=== PATIENT | male | born 1950 | race Caucasian/White ===

== ENCOUNTER 2022-03-07 03:56 | Emergency (ER) | payer MEDICARE, OTHER, SELFPAY ==
[2022-03-07] VITALS (10 sets, daily range): BP systolic 119–205; BP diastolic 77–131; PULSE 75–92; RESP 15–25; TEMP 36.4; O2SAT 94–96
--- NOTE | ~2022-03-07 | XR_ITS ---
EXAMINATION: XR chest 2V DATE: 03/07/2022 04:58 INDICATION: Shortness of breath TECHNIQUE: PA and lateral views of the chest are obtained. COMPARISON: 10/23/2015 FINDINGS: The lungs are hyperinflated but free of acute opacities. There is no pleural effusion or pn eumothorax. The cardiomediastinal silhouette is normal. There is mild thoracic spondylosis. There is mild gaseous distention of the stomach. IMPRESSION: 1. Hyperinflation without acute cardiopulmonary abnormality. Reviewed, dictated and finalized at location A.
--- NOTE | 2022-03-07 04:09 | ECG_ITS ---
Measurements Intervals [place] Rate: 90 P: 68 PA: 176 QRS: 27 QRSD: 98 T: 28 QT: 327 QTc: 401 Interpretive Statements SINUS RHYTHM NONSPECIFIC ST SEGMENT ABNORMALITY SIGNIFICANT BASELINE ARTIFACT Electronically Signed On 03-07-2022 9:03:12 CDT by Luis Eldridge M.D.
--- NOTE | 2022-03-07 04:11 | ED.SOB ---
HPI - SOB/Dyspnea General Chief Complaint: Shortness of Breath/Dyspnea Stated Complaint: SOB Time Seen by Provider: 03/07/22 03:58 Source: patient History of Present Illness HPI Narrative: Patient presents with shortness of breath. Reports that shortness of breath for the past couple days and has been associated with a cough. Ports a history of asthma is attempted albuterol with limited relief. He saw his primary care doctor yesterday and was started on a steroid taper. This morning his symptoms appear to be getting worse so he came to the ER for further evaluation. Denies any fevers, chest pain, nausea, vomiting, diarrhea, abdominal pain Related Data Home Medications Medication Instructions Recorded Confirmed B6 1.7 mg-folic 400 mcg-B12 2.4 cap PO 08/03/21 03/06/22 [id number] oral capsule Allergies Allergy/AdvReac Type Severity Reaction Status Date / Time amoxicillin Allergy Unknown Unknown Verified 03/07/22 04:12 tiotropium Allergy Unknown Unknown Verified 03/07/22 04:12 Review of Systems Review of Systems: CONSTITUTIONAL: Denies fever, chills, or sweats. EYES: Denies visual changes, redness, or discharge. ENT: Denies rhinorrhea, congestion, sore throat, or otalgia. CARDIOVASCULAR: Denies chest pain, palpitations, or edema. RESPIRATORY: Cough and shortness of breath GASTROINTESTINAL: Denies abdominal pain, nausea, vomiting, or diarrhea. GENITOURINARY: Denies dysuria or hematuria. SKIN: Denies rash or itching. MUSCULOSKELETAL: Denies back pain, joint pain, or myalgia. NEUROLOGIC: Denies headache, numbness, dizziness, or weakness. PSYCHIATRIC: Denies anxiety or depression. All systems reviewed & are unremarkable except as noted in HPI and below PMFSH Past Medical History Medical History Anxiety Essential hypertension Hypothyroidism, unspecified Mild persistent asthma Mixed hyperlipidemia Parkinsons disease Prostate cancer screening Psoriasis Vitamin B12 deficiency Family History Family History Father Family history of tuberculosis Cerebrovascular accident Sibling Asthma Social History Social History Second hand tobacco smoke exposure: No Alcohol intake: never Substance use: never Substance use type: does not use Gender identity (if verbalized by the patient): Male Exam Narrative: GENERAL: Well-appearing, well-nourished, and in no acute distress. HEAD: Normocephalic, atraumatic. EYES: PERRLA and EOMI. ENT: Nares clear, no rhinorrhea or epistaxis. Mucous membranes moist. NECK: Supple. No masses. No JVD CHEST: Expiratory wheezing HEART: Regular rate and rhythm. No murmur heard. Normal peripheral pulses. ABDOMEN: Soft, nontender, nondistended, normal active bowel sounds. EXTREMITIES: Normal range of motion. No edema. SKIN: Warm, dry, no rash. NEURO: No focal deficits. Alert and oriented x3. PSYCH: Normal mood and affect. Course Reevaluation(s) Reevaluation #1: Patient reports feeling much improved and would like to go home to continue managing his symptoms. Repeat lung exam is improved. Date: 03/07/22 Time: 05:29 Vital Signs Vital signs: Vital Signs Temperature 36.4 C 03/07/22 04:00 Pulse Rate 92 03/07/22 04:00 Respiratory Rate 25 H 03/07/22 04:00 Blood Pressure 205/131 H 03/07/22 04:00 Pulse Oximetry 96 03/07/22 04:00 Temperature 36.4 C 03/07/22 04:00 Pulse Rate 89 03/07/22 05:45 Respiratory Rate 20 03/07/22 05:45 Blood Pressure 119/77 03/07/22 05:45 Pulse Oximetry 95 03/07/22 05:45 MDM - SOB/Dyspnea MDM Narrative Medical decision making narrative: H&P as above, vs with hypertension, pt looks clinically well, exam mild wheezing in all lung higgins, labs with leukocytosis likely related to him resuming his prednisone, img without acute process, additional l
[2022-03-07] MEDS: methylPREDNISolone SOD SUCC 125 MG VIAL IV PUSH (04:19)
--- NOTE | 2022-03-07 04:24 | PC.NURSE ---
When pt was originally put on room air in the ED his O2 saturation was in the mid 90's. While talking to the pt his O2 would decrease and he would become uncomfortable and anxious. Pt placed on 4L nasal cannula and saturating 96% at this time.
[2022-03-07 04:25] LABS: Basophils Absolute Auto 0.1 K/mm3 (0.0-0.1); Basophils Percent Auto 0.2 % (0.2-1.2); Hematocrit 50.9 % (42.0-52.0); Hemoglobin 16.3 g/dL (14.0-18.0); Immature Granulocyte Absolute 0.17 K/mm3 (0.00-0.031); Immature Granulocyte Percent A 0.8 % (0-0.5); Lymphocytes Absolute Auto 0.95 K/mm3 (0.9-3.2); Lymphocytes Percent Auto 4.3 % (18.3-44.2); Mean Corpuscular Hemoglobin 31.5 pg (26-34); Mean Corpuscular Volume 98.5 fl (80-100); Mean Platelet Volume 10.6 fl (7.4-10.4); Monocytes Absolute Auto 1.3 K/mm3 (0.1-0.6); Monocytes Percent Auto 5.6 % (2.6-8.5); Neutrophils Absolute Auto 19.7 K/mm3 (1.3-6.7); Neutrophils Percent Auto 89.1 % (45.5-73.1); Platelet Count Result 276 k/mm3 (150-375); Red Blood Count 5.17 M/mm3 (4.6-6.20); Red Cell Distribution Width 13.4 % (11.5-14.5); White Blood Count 22.2 K/mm3 (4.5-10.0)
[2022-03-07] MEDS: ALBUTEROL SULFATE NEB 2.5 MG/0.5 ML INH 5 MG INHALATION ×2 (04:31→05:15)
[2022-03-07 04:43] LABS: Ovalocytes 1+ (NORMAL); Platelet Estimate Adequate (Adequate); Poikilocytosis 1+ (NORMAL); Tear Drop Cells 1+ (NORMAL)
[2022-03-07 04:53] LABS: HCO3 ABG 23.2 mEq/l (22.0-26.0); PCO2 ABG 46.2 mmHg (35.0-45.0); pH ABG 7.319 (7.350-7.450)
[2022-03-07 04:54] LABS: Base Excess ABG -3.2 mEq/l (+/-2.0); Oxygen Saturation ABG 97.3 % (95.0-100.0); Total Hemoglobin 16.4 g/dL (12.0-18.0)
[2022-03-07 04:55] LABS: Alveolar/Arterial O2 Gradient 99.1 mmHg; Fractional Inspired Oxygen 36 %; Oxygen Content ABG 22.4 %vol (16.0-22.0); Oxyhemoglobin 96.8 % THb (90.0-100.0); PO2 FiO2 Ratio Arterial Blood 2.89 %; Site Drawn RIGHT RADIAL
[2022-03-07 04:56] LABS: Device NASAL CANNULA; Modified Allen's Test Pass
[2022-03-07 05:24] LABS: Alanine Aminotransferase 14 U/L (4-50); Albumin Level 4.7 g/dL (3.5-5.1); Alkaline Phosphatase 108 U/L (38-126); Anion Gap 10 mmol/L (8-16); Aspartate Amino Transferase 41 U/L (17-59); Bilirubin,Total 0.8 mg/dL (0.2-1.3); Blood Urea Nitrogen 24 mg/dL (9-20); Calcium 8.7 mg/dL (8.4-10.2); Carbon Dioxide 30 mmol/L (22-30); Chloride 103 mmol/L (98-107); Estimated CRCL calculation 44 ml/min; Estimated Glomerular Filt Rate 60; Glucose 168 mg/dL (65-110); Potassium 4.2 mmol/L (3.4-5.0); Sodium 143 mmol/L (137-145)
== END 2022-03-07 05:47 | disposition home or self-care (01) ==
PROVIDERS: Emergency Provider Emergency Medicine; PCP Family Medicine
DX: R06.00 Dyspnea, unspecified (principal); I10 Essential (primary) hypertension; E03.9 Hypothyroidism, unspecified; J45.30 Mild persistent asthma, uncomplicated; G20 Parkinson's disease; E53.8 Deficiency of other specified B group vitamins; R94.31 Abnormal electrocardiogram [ECG] [EKG]
CPT/HCPCS: 36415; 36600; 71046; 80053; 82805; 85025; 93005; 94640; 96374; 99284; J2930

== ENCOUNTER 2023-01-09 08:56 | Outpatient (CLI) | payer MEDICARE, OTHER, SELFPAY ==
--- NOTE | ~2023-01-09 | XR_ITS ---
EXAMINATION: XR barium swallow modified DATE: 01/09/2023 09:47 INDICATION: Dysphagia. Unspecified foreign body in other parts of respiratory tract. TECHNIQUE: The patient was given barium-containing material of multiple consistencies to swallow by aiden salazar speech pathologist while I performed fluoroscopy. Fluoroscopy exposure time was 1.3 minutes. The n umber of fluoroscopy images saved to the PACS was 1. Dose-area product was 0.902 Gy-cm^2. FINDINGS: There is reduced laryngeal elevation and reduced tongue base retraction. There is laryngeal penetrati on with uncontrolled thick liquids via straw. IMPRESSION: 1. Laryngeal penetration. 2. Please refer to the speech therapy report for recommendations. Reviewed, dictated and finalized at location A. ITURE SPRAYER
--- NOTE | 2023-01-09 12:33 | REHSTMBS ---
Assessment and note entered by Bettina Ramos PUBLICATIONS DESIGNER Modified Barium Swallow Evaluation Feeding Type Recommended Oral Food Consistency Regular, Level 7 Liquid Consistency Mildly Thick (2) Treatment Recommendations Effortful Swallow,Laryngeal Elevation Exerc, Dominic Maneuver,Supraglottic Swallow,Tongue Base Exercise ST Clinical Summary MODIFIED BARIUM SWALLOW STUDY This patient was seen for a Modified Barium Swallow study at the request of his physician. Patient reports a history of Parkinson's disease that has contributed to extra movements of the hands and arms. He reports a history of drooling but stated he has only had difficulty swallowing bread three times in the past five years. He denied difficulty swallowing solid foods. Today the patient was presented with thin liquid contrast medium, pudding mixed with semi-solid contrast medium, and cracker and fruit pieces coated with the semi-solid mixture. He exhibited quick swallows with no evidence of penetration or aspiration until inconsistent penetration was noted per cup and straw. He did not cough on this material but was noted to cough on thin liquids after swallowing plain water per cup at the completion of the evaluation. Results suggest the patient may have a Regular Diet although he may benefit from having food presented softer and cut up. Also he may benefit from thickener to achieve a Mildly Thick Liquid consistency. Since patient reports he uses a straw at all times and this is the means by which penetration was noted, he most likely would benefit best from use of thickener. Expecting head flexion to assist with avoiding penetration is unlikely secondary to patient's physical limitations. Results were explained to patient however this therapist is unsure if patient understood the recommendations. Patient would benefit from direct Speech Therapy for instruction of safe swallowing techniques and guidelines and to instruct the patient in use of swallowing strengthening exercises. Please order outpatient Speech Therapy and fax to outpatient
== END 2023-01-09 08:57 | disposition home or self-care (01) ==
PROVIDERS: PCP Family Medicine; Visit Provider Internal Medicine Critical Care Medicine
DX: T17.800A Unspecified foreign body in other parts of respiratory tract causing asphyxiation, initial encounter (principal)
CPT/HCPCS: 92611

== ENCOUNTER 2023-01-11 07:36 | Outpatient (CLI) | payer MEDICARE, OTHER, SELFPAY ==
--- NOTE | 2023-01-11 13:19 | WPDPFTINT ---
PFT Procedure Performed PFT Procedure Performed Spirometry with Pre/Post Bronchodilator Plethysmography (Lung Vol) Flow Vol Loop PFT Interpretation This is a pulmonary function test with pre and post-bronchodilator spirometry and plethysmography. The test was performed and results interpreted in accordance with the 2019 and 2005 ATS/ERS Task Force guidelines respectively using the Global Lung Function Initiative-2012 reference equations. Patient demonstrated good effort and cooperation. Reproducibility criteria were met. The quality of the pre bronchodilator spirometry maneuver was Grade A and post bronchodilator spirometry maneuver was Grade A. Of note the patient was then able to perform the DLCO maneuver. Patient had Parkinson's disease and had difficulty with mouth PCO. Findings: Spirometry: There is decreased maximal expiratory airflow at all lung volumes with concave expiratory flow tracing. The contour the inspiratory flow tracing is normal. The pre bronchodilator FVC is 2.63 L, 62% predicted. The pre bronchodilator FEV1 is 1.06 L, 33% predicted. The pre bronchodilator FEV1: FVC ratio is 40%. The post bronchodilator FVC is 3.06 L, representing a 16% increase. The post bronchodilator FEV1 is 1.38 L, representing a 30% increase. The post bronchodilator FEV1: FVC ratio is 45%. Plethysmography: The total lung capacity is 6.49 L, 92% predicted. The functional residual capacity is 4.67 L, 125% predicted. The residual volume is 3.48 L, 141% predicted. Impression: There is a very severe obstructive abnormality with significant improvement after inhaling a single dose of albuterol. The increase in residual volume is consistent with air trapping from an obstructive abnormality. There are no prior studies for comparison
== END 2023-01-11 07:37 | disposition home or self-care (01) ==
LOC: ANHPFT 07:37
PROVIDERS: PCP Family Medicine; Visit Provider Internal Medicine Critical Care Medicine
DX: J45.30 Mild persistent asthma, uncomplicated (principal); R94.2 Abnormal results of pulmonary function studies
CPT/HCPCS: 94060; 94726

== ENCOUNTER 2023-01-22 13:10 | Outpatient (RCR) | payer MEDICARE, OTHER, SELFPAY ==
--- NOTE | 2023-01-22 16:57 | STOPEVAL1 ---
Assessment and note entered by STORMY Cummins Evaluation Information Assessment Status Evaluation Reported Pain Level Pain Score 0: Self Report Assessment ST Clinical Summary BEDSIDE SWALLOW EVALUATION This patient was seen for a Bedside Swallow Evaluation following a Modified Barium Swallow study on 01/09/23. He reports he has had swallowing issues for thirty-five years. He states that he occasionally had difficulty with prime rib falling into this throat before he wants it to. He states now he has to spend about an hour to an hour and a half consuming his meals He states that now bread causes trouble but has learned to take smaller bites. Patient stated that he is cautious with pea soup with meat because he cannot see the meat in it and was not prepared. Patient reports he has issues with breathing since he was young and currently is on a nebulizer, Advair, and Albuterol. Patient stated that Dr. Ayala told him that he was leaving too much Advair on his tongue after spraying but then he was told to brush his tongue and he noticed that he had gagged on the toothbrush but he is able to avoid that now. Patient goes out to eat 1-2 times a day and the employees cut up his food fine for him. He then stated that he avoids eating and drinking both foods and liquids at the same time but when asked about consuming mixed consistencies such as chicken noodle soup (solid noodles and meat with thin broth) or cereal in milk, he denied any difficulty. Patient was not presented with food or drink today as he already had a Modified Barium Swallow study; results were reviewed along with both normal and abnormal swallowing. He was then instructed in the use of swallowing strengthening exercises to improve the strength and safety of the swallows, including laryngeal elevation, laryngeal adduction, and base of tongue retraction exercises. He completed each exercise 5-10 times today, along with hard, effortful swallows preparing patient to complete independently at home daily. Patient voiced and demonstrated good understanding of home exercise program. Results indicate
== END 2023-01-29 11:07 | disposition home or self-care (01) ==
LOC: ANHST 13:10
PROVIDERS: PCP Family Medicine; Visit Provider Internal Medicine Critical Care Medicine
DX: T17.800D Unspecified foreign body in other parts of respiratory tract causing asphyxiation, subsequent encounter (principal)
CPT/HCPCS: 92610

== ENCOUNTER 2023-08-06 09:45 | Outpatient (CLI) | payer MEDICARE, OTHER, SELFPAY ==
--- NOTE | ~2023-08-06 | NM_ITS ---
EXAMINATION: NM bone scan whole body DATE: 08/06/2023 15:53 INDICATION: Prostate cancer. TECHNIQUE: 24 mCi Tc-99m HDP was administered intravenously. Delayed whole-body scintigrams were obt ained. COMPARISON: Chest 2 views 03/07/2022, CT abdomen and pelvis 02/20/2013 FINDINGS: There is disc-centered increased activity in the lumbar spine, correlating with degenerativ e disc disease by CT. There is increased activity at the acromioclavicular joints and sternoclavicula r joints, likely osteoarthritis. IMPRESSION: 1. No evidence of metastatic disease. Reviewed, dictated and finalized at location A.
== END 2023-08-06 09:46 | disposition home or self-care (01) ==
PROVIDERS: PCP Family Medicine; Visit Provider Nurse Practitioner Adult Health
DX: C61 Malignant neoplasm of prostate (principal)
CPT/HCPCS: 78306; A9503

== ENCOUNTER 2023-08-20 06:57 | Outpatient (CLI) | payer MEDICARE, OTHER, SELFPAY ==
--- NOTE | ~2023-08-20 | CT_ITS ---
EXAMINATION: CT abdomen pelvis w con DATE: 08/20/2023 07:36 INDICATION: Prostate cancer TECHNIQUE: Computed tomography (CT) of the abdomen and pelvis was performed with 100 cc Omnipaque 350 intravenous contrast. The dose-length product was 201.19 mGy-cm. Automated exposure control and iter ative reconstruction technique were employed. COMPARISON: CT dated 02/20/2013. FINDINGS: Lung bases are unremarkable. Heart size normal. No significant pleural or pericardial effus ion. There are moderately distended gas-filled small bowel and large bowel loops with air-fluid level s. No definitive transition site. Findings compatible with ileus. No free air identified. There are s mall low-density lesions in the liver, too small to characterize, most likely benign. The spleen, valdez creas, adrenal glands are unremarkable. There are nonobstructing bilateral renal stones. There are bi lateral renal cysts. Gallbladder is present. There is atherosclerosis of the aorta without aneurysm. Mildly prominent prostate gland. Bladder is decompressed. No lymphadenopathy. Moderate-severe lumbar spondylosis. No evidence for sclerotic metastases. IMPRESSION: 1. Nonobstructing bilateral nephrolithiasis. 2: Moderate gas-filled distended small bowel and colon, most likely ileus. Reviewed, dictated and finalized at location B.
[2023-08-20 07:32] LABS: Estimated Glomerular Filt Rate > 60
== END 2023-08-20 06:58 | disposition home or self-care (01) ==
PROVIDERS: PCP Family Medicine; Visit Provider Nurse Practitioner Adult Health
DX: C61 Malignant neoplasm of prostate (principal); N20.0 Calculus of kidney
CPT/HCPCS: 74177; Q9967

== ENCOUNTER 2024-04-01 20:46 | Emergency (ER) | payer MEDICARE, OTHER, SELFPAY ==
[2024-04-01] VITALS (7 sets, daily range): BP systolic 119–175; BP diastolic 60–99; PULSE 77–124; RESP 17–25; TEMP 36.6; O2SAT 87–98
--- NOTE | ~2024-04-01 | XR_ITS ---
EXAMINATION: XR chest 1V portable Exam Date/Time: 04/01/2024 21:42 CDT HISTORY: dyspnea Comparison: 03/07/2022. RESULT: Lines, tubes, and devices: None. Lungs and pleura: Senescent/emphysematous change, otherwise clear. Cardiomediastinal silhouette: Stable. Other: No acute osseous or upper abdominal finding. IMPRESSION: No acute cardiopulmonary process. Reviewed, dictated and finalized at location K.
--- NOTE | 2024-04-01 21:02 | ECG_ITS ---
SEE SCANNED COPY FOR CONFIRMED REPORT MTDD
[2024-04-01] MEDS: dexAMETHasone SOD PHOS INJ 10 MG/ML 1 ML VIAL IV PUSH (21:13)
[2024-04-01] MEDS: SODIUM CHLORIDE 0.9% IV 2,000 ML 999 ML IV CONT (21:13)
[2024-04-01] MEDS: MAGNESIUM SULF 2 GM/WATER 50ML 2 GM/50 ML BAG IVPB (21:33)
[2024-04-01 21:38] LABS: Alveolar/Arterial O2 Gradient 22.6 mmHg; Base Excess ABG 1.9 mEq/l (+/-2.0); Fractional Inspired Oxygen 44 %; HCO3 ABG 27.5 mEq/l (22.0-26.0); Oxygen Content ABG 21.4 %vol (16.0-22.0); Oxygen Saturation ABG 99.5 % (95.0-100.0); Oxyhemoglobin 98.5 % THb (90.0-100.0); PCO2 ABG 46.6 mmHg (35.0-45.0); PO2 FiO2 Ratio Arterial Blood 5.41 %; Total Hemoglobin 15.1 g/dL (12.0-18.0); pH ABG 7.389 (7.350-7.450)
[2024-04-01 21:42] LABS: Device NASAL CANNULA; Modified Allen's Test Pass; Site Drawn LEFT RADIAL
[2024-04-01 21:43] LABS: Basophils Absolute Auto 0.1 K/mm3 (0.0-0.1); Basophils Percent Auto 0.5 % (0.2-1.2); Eosinophils Percent Auto 0.2 % (0-4.4); Hematocrit 52.4 % (42.0-52.0); Hemoglobin 16.3 g/dL (14.0-18.0); Immature Granulocyte Absolute 0.06 K/mm3 (0.00-0.031); Immature Granulocyte Percent A 0.4 % (0-0.5); Lymphocytes Absolute Auto 1.85 K/mm3 (0.9-3.2); Lymphocytes Percent Auto 12.4 % (18.3-44.2); Mean Corpuscular HGB Conc 31.1 g/dl (32-36); Mean Corpuscular Hemoglobin 30.5 pg (26-34); Mean Corpuscular Volume 97.9 fl (80-100); Mean Platelet Volume 11.1 fl (7.4-10.4); Monocytes Absolute Auto 1.7 K/mm3 (0.1-0.6); Monocytes Percent Auto 11.4 % (2.6-8.5); Neutrophils Absolute Auto 11.2 K/mm3 (1.3-6.7); Neutrophils Percent Auto 75.1 % (45.5-73.1); Platelet Count Result 296 k/mm3 (150-375); Red Blood Count 5.35 M/mm3 (4.6-6.20); Red Cell Distribution Width 13.8 % (11.5-14.5); White Blood Count 14.9 K/mm3 (4.5-10.0)
[2024-04-01] MEDS: ALBUTEROL SULFATE NEB 2.5 MG/3 ML INH 10 MG INHALATION (21:44)
[2024-04-01 21:53] LABS: Lactic Acid Reflex 1.7 mmol/L (0.7-2.0)
[2024-04-01 21:54] LABS: Alanine Aminotransferase 38 U/L (6-50); Alkaline Phosphatase 99 U/L (38-126); Anion Gap 10 mmol/L (4-12); Aspartate Amino Transferase 32 U/L (17-59); Bilirubin,Total 1.1 mg/dL (0.2-1.3); Blood Urea Nitrogen 23 mg/dL (9-20); Carbon Dioxide 32 mmol/L (22-30); Chloride 103 mmol/L (98-107); Estimated CRCL calculation 43 ml/min; Estimated Glomerular Filt Rate 60; Glucose 130 mg/dL (65-110); Potassium 4.4 mmol/L (3.4-5.0); Sodium 145 mmol/L (137-145)
[2024-04-01 21:57] LABS: Partial Thromboplastin Time 24.9 Seconds (22.3-36.8); Prothrombin Time 13.5 Seconds (11.1-14.7)
[2024-04-01 22:05] LABS: NT Pro B Type Natriuretic Pept 140 pg/mL (19.9-100); Troponin I < 0.012 ng/mL (0.000-0.034)
[2024-04-01 22:22] LABS: Influenza A QL RT-PCR Negative (Negative); Influenza B QL RT-PCR Negative (Negative); RSV RNA, RT-PCR Negative (Negative); SARS-CoV-2 RNA PCR Negative (Negative)
[2024-04-01] MEDS: LORazepam INJ (*CRX) 2 MG/ML VIAL 0.5 MG IV PUSH (23:13)
--- NOTE | 2024-04-01 23:33 | ED.GENADULT ---
HPI - General Adult General Chief complaint: Upper Respiratory Infection Stated complaint: asthma attack Time Seen by Provider: 04/01/24 21:00 History of Present Illness HPI narrative: This is a 73-year-old male with history of asthma, Parkinson's and anxiety presenting for difficulty breathing. Feels like his asthma has been worse throughout the day today. He has taken a course of prednisone and uses inhalers without any relief. Patient denies fevers chills productive cough chest pain. Patient has significant anxiety. Related Data Allergies Allergy/AdvReac Type Severity Reaction Status Date / Time Iodinated Contrast Media Allergy Mild Hives Verified 12/25/23 13:40 amoxicillin Allergy Unknown Unknown Verified 12/25/23 13:40 tiotropium Allergy Unknown Unknown Verified 12/25/23 13:40 PMF Past Medical History Medical History Anxiety Essential hypertension Hypothyroidism, unspecified Mild persistent asthma Mixed hyperlipidemia Parkinson's disease with dyskinesia Parkinsons disease Psoriasis Vitamin B12 deficiency Surgical History Surgical History H/O hand surgery Hx of hernia repair Family History Family History Father Family history of tuberculosis Cerebrovascular accident Sibling Asthma Social History Social History Smoking status: Never smoker Second hand tobacco smoke exposure: Yes Alcohol intake: never Substance use: never Substance use type: does not use Lack of Transportation: No Lack of Food: Never True Current Housing: I Have Housing Concerned About Future Housing: No Difficulty Paying Gas/Electric Bills: No Difficulty Paying for Meds: No Currently Unemployed: No Education: Master's Degree or Higher Living arrangements: with family Occupation/Education: retired Gender identity (if verbalized by the patient): Male Sexual Orientation (if Verbalized by the Patient): Straight or Heterosexual Spiritual care concerns: No Agree to blood products: Yes Exam Narrative: APPEARANCE: patient has bilateral hand tremors. patient is very anxious Head: atraumatic. EYES: EOMI, NOSE: Atraumatic NECK: Trachea midline RESPIRATORY: tachypneic, hypoxic on room air, wheezing all higgins CARDIOVASCULAR: tachycardic, no peripheral edema ABDOMINAL: Non-distended soft nontender MUSCULOSKELETAl: No obvious deformities NEURO: Alert. resting tremor SKIN:: Warm, dry. Normal color PSYCHIATRIC: anxious Course Vital Signs Vital signs: Vital Signs Temperature 97.9 F 04/01/24 21:03 Pulse Rate 124 H 04/01/24 21:03 Respiratory Rate 25 H 04/01/24 21:03 Blood Pressure 163/99 H 04/01/24 21:03 Pulse Oximetry 87 L 04/01/24 21:03 Oxygen Delivery Room Air 04/01/24 21:03 Temperature 97.9 F 04/01/24 21:03 Pulse Rate 87 04/02/24 00:20 Respiratory Rate 20 04/02/24 00:20 Blood Pressure 141/91 H 04/02/24 00:20 Pulse Oximetry 94 04/02/24 00:20 Oxygen Delivery BiPAP 04/01/24 23:45 Oxygen Flow Rate 6 04/01/24 21:06 Medical Decision Making MDM Narrative Medical decision making narrative: -Course:73-year-old male presenting with shortness of breath. he was initially put on BiPAP and given hour long breathing treatment. However despite his respiratory status improving he was still very anxious. He was given 0.5 mg Ativan with complete normalization of his vital signs. On re-evaluation patient is resting comfortably. He was taken off of BiPAP and is breathing normally on room air. He was able to ambulatory pulse ox and never dropped 93%. I recommended admission for asthma exacerbation and the patient has declined. He is ready to go home. Patient will be discharged with return return precautions. -DDX includes but is n
[2024-04-02 00:20] VITALS: BP 141/91; PULSE 87; RESP 20; O2SAT 94
[2024-04-02 01:03] LABS: Troponin I 0.027 ng/mL (0.000-0.034)
[2024-04-02 02:12] VITALS: BP 159/82; PULSE 86; RESP 20; O2SAT 97
== END 2024-04-02 02:14 | disposition home or self-care (01) ==
PROVIDERS: Emergency Provider Emergency Medicine; PCP Family Medicine
DX: J45.30 Mild persistent asthma, uncomplicated (principal); F41.9 Anxiety disorder, unspecified; Z20.822 Contact with and (suspected) exposure to COVID-19; G20.B1 Parkinson's disease with dyskinesia, without mention of fluctuations; I10 Essential (primary) hypertension; E03.9 Hypothyroidism, unspecified; E78.2 Mixed hyperlipidemia; E53.8 Deficiency of other specified B group vitamins; L40.9 Psoriasis, unspecified
CPT/HCPCS: 36415; 36600; 71045; 80053; 82805; 83605; 83880; 84484; 85025; 85610; 85730; 87040; 87637; 93005; 94002; 94640; 96365; 96375; 99284; J1100; J2060; J3475; J7030

== ENCOUNTER 2024-04-27 08:42 | Emergency (ER) | payer MEDICARE, OTHER, SELFPAY ==
--- NOTE | ~2024-04-27 | CT_ITS ---
EXAMINATION: CT soft tissue neck wo con DATE: 04/27/2024 09:48 INDICATION: Left-sided neck mass TECHNIQUE: Computed tomography (CT) of the neck was performed with 75 mL Omnipaque-350 intravenous co ntrast. The dose-length product was 258.91 mGy-cm. Automated exposure control and iterative reconstru ction technique were employed. COMPARISON: None FINDINGS: Lung apices are unremarkable. Intracranial structures are grossly unremarkable. No airway c ompromise. Mucosal and parapharyngeal spaces are symmetric. Thyroid gland is grossly unremarkable. Study limited due to lack of contrast. There is an enlarged lymph node measuring 12 mm short axis, le alyssa 2, superficial to the sternocleidomastoid muscle which corresponds to the area of palpable concer n. There were small mucous retention cysts of the maxillary and ethmoid sinuses. No subglottic airway na rrowing. There is atherosclerosis of the right carotid bifurcation. Moderate cervical spondylosis. IMPRESSION: 1. Left cervical lymphadenopathy measuring 12 mm short axis, corresponding to the area of palpable co ncern. Consider further evaluation with contrast-enhanced CT neck for further assessment. Reviewed, dictated and finalized at location B. IMPRESSION: 1. Left cervical lymphadenopathy measuring 12 mm short axis, corresponding to t he area of palpable concern. Consider further evaluation with contrast-enhanced CT neck for further assessment.
[2024-04-27 08:48] VITALS: BP 142/81; PULSE 72; RESP 17; TEMP 37.2; O2SAT 100
[2024-04-27 09:44] LABS: Basophils Absolute Auto 0.1 K/mm3 (0.0-0.1); Basophils Percent Auto 0.8 % (0.2-1.2); Eosinophils Absolute Auto 0.3 K/mm3 (0-0.3); Eosinophils Percent Auto 2.8 % (0-4.4); Hematocrit 46.6 % (42.0-52.0); Immature Granulocyte Absolute 0.03 K/mm3 (0.00-0.031); Immature Granulocyte Percent A 0.3 % (0-0.5); Lymphocytes Absolute Auto 1.29 K/mm3 (0.9-3.2); Lymphocytes Percent Auto 12.2 % (18.3-44.2); Mean Corpuscular HGB Conc 32.2 g/dl (32-36); Mean Corpuscular Hemoglobin 31.1 pg (26-34); Mean Corpuscular Volume 96.7 fl (80-100); Mean Platelet Volume 10.5 fl (7.4-10.4); Monocytes Absolute Auto 0.9 K/mm3 (0.1-0.6); Monocytes Percent Auto 8.1 % (2.6-8.5); Neutrophils Percent Auto 75.8 % (45.5-73.1); Platelet Count Result 223 k/mm3 (150-375); Red Blood Count 4.82 M/mm3 (4.6-6.20); White Blood Count 10.6 K/mm3 (4.5-10.0)
[2024-04-27 09:53] LABS: Anion Gap 2 mmol/L (4-12); Blood Urea Nitrogen 22 mg/dL (9-20); Calcium 9.5 mg/dL (8.4-10.2); Carbon Dioxide 34 mmol/L (22-30); Chloride 108 mmol/L (98-107); Estimated CRCL calculation 51 ml/min; Estimated Glomerular Filt Rate > 60; Glucose 81 mg/dL (65-110); Potassium 4.3 mmol/L (3.4-5.0); Sodium 144 mmol/L (137-145)
--- NOTE | 2024-04-27 12:27 | ED.GENADULT ---
HPI - General Adult General Chief complaint: Unspecified Stated complaint: GROWTH ON THE NECK Time Seen by Provider: 04/27/24 08:55 Source: patient Mode of arrival: ambulatory Limitations: no limitations History of Present Illness HPI narrative: 73-year-old with a history of Parkinson's here with a complaint of swelling on his left side of his neck. Patient states that he had noticed test today. He denies any fever or chills. Onset (ago): day(s) (1) Location: neck Pain Consistency: constant Relieving factors: none Exacerbating factors: none Associated symptoms: denies other symptoms Related Data Allergies Allergy/AdvReac Type Severity Reaction Status Date / Time Iodinated Contrast Media Allergy Mild Hives Verified 04/27/24 08:51 amoxicillin Allergy Unknown Unknown Verified 04/27/24 08:51 tiotropium Allergy Unknown Unknown Verified 04/27/24 08:51 Review of Systems Review of Systems: All systems reviewed & are unremarkable except as noted in HPI and below Constitutional: Constitutional: Reports no additional constitutional complaints Eyes: Eyes: Reports no additional eye complaints ENT: Reports system reviewed and no additional complaints, except as documented Cardiovascular: Cardiovascular: Reports no additional cardiovascular complaints Respiratory: Respiratory: Reports no additional respiratory complaints Gastrointestinal: Gastrointestinal: Reports no additional gastrointestinal complaints Musculoskeletal: Musculoskeletal: Reports no additional musculoskeletal complaints Neurologic: Reports system reviewed and no additional complaints, except as documented Psychiatric: Psychiatric: Reports no additional psychiatric complaints [facility] Past Medical History Medical History (Updated 04/27/24 @ 12:34 by Connor Field MD) Anxiety Essential hypertension Hypothyroidism, unspecified Mild persistent asthma Mixed hyperlipidemia Parkinson's disease with dyskinesia Parkinsons disease Prostate cancer Psoriasis Vitamin B12 deficiency Surgical History Surgical History H/O hand surgery Hx of hernia repair Family History Family History Father Family history of tuberculosis Cerebrovascular accident Sibling Asthma Social History Social History Smoking status: Never smoker Second hand tobacco smoke exposure: Yes Alcohol intake: never Substance use: never Substance use type: does not use Lack of Transportation: No Lack of Food: Never True Current Housing: I Have Housing Concerned About Future Housing: No Difficulty Paying Gas/Electric Bills: No Difficulty Paying for Meds: No Currently Unemployed: No Education: Master's Degree or Higher Living arrangements: with family Occupation/Education: retired Gender identity (if verbalized by the patient): Male Sexual Orientation (if Verbalized by the Patient): Straight or Heterosexual Spiritual care concerns: No Agree to blood products: Yes Exam Narrative: GENERAL: Well-appearing, well-nourished, and in no acute distress. HEAD: Normocephalic, atraumatic. EYES: PERRLA and EOMI. ENT: Nares clear, no rhinorrhea or epistaxis. Mucous membranes moist. NECK: Supple. There is about 3 cm soft mobile mass on the left side of the neck along the sternocleidomastoid area close to the parotid. Nontender no erythema CHEST: Clear to auscultation. No respiratory distress. HEART: Regular rate and rhythm. No murmur heard. Normal peripheral pulses. ABDOMEN: Soft, nontender, nondistended, normal active bowel sounds. EXTREMITIES: Normal range of motion. No edema. SKIN: Warm, dry, no rash. NEURO: No focal deficits. Alert and oriented x3. PSYCH: Normal mood and affect. Course Course Emergency Course: Notified patient about the lab work, CT findings recommended him to follow up
[2024-04-27 12:48] VITALS: BP 135/72; PULSE 76; RESP 18; TEMP 36.8; O2SAT 100
== END 2024-04-27 12:50 | disposition home or self-care (01) ==
PROVIDERS: Emergency Provider Family Medicine; PCP Family Medicine
DX: R59.0 Localized enlarged lymph nodes (principal); F41.9 Anxiety disorder, unspecified; I10 Essential (primary) hypertension; E03.9 Hypothyroidism, unspecified; J45.909 Unspecified asthma, uncomplicated; E78.5 Hyperlipidemia, unspecified; G20.B1 Parkinson's disease with dyskinesia, without mention of fluctuations; Z85.46 Personal history of malignant neoplasm of prostate
CPT/HCPCS: 36415; 70490; 80048; 85025; 99284

== ENCOUNTER 2024-05-27 08:46 | Outpatient (CLI) | payer MEDICARE, OTHER, SELFPAY ==
--- NOTE | ~2024-05-27 | US_ITS ---
EXAMINATION: US FNA w image guidance DATE: 05/27/2024 10:58 INDICATION: Generalized enlarged lymph nodes. TECHNIQUE: The procedure and its benefits and risks were discussed with the patient. Risks specifically discusse d included bleeding. The patient verbalized understanding of the risks and agreed to proceed. The nec k was prepped and draped in the usual sterile manner. 1% lidocaine was used for local anesthesia. 6 passes were made with a 25G needle into the lesion under ultrasound guidance. There were no immedia te complications. FINDINGS: Grayscale ultrasound images demonstrate needles advanced into a 1.3 x 0.8 cm left parotid mass for bi opsy. IMPRESSION: 1. Ultrasound-guided fine needle aspiration of a left parotid mass. Reviewed, dictated and finalized at location A.
== END 2024-05-27 08:47 | disposition home or self-care (01) ==
LOC: ANHIMG 08:47
PROVIDERS: PCP Family Medicine; Visit Provider Surgery
DX: R59.1 Generalized enlarged lymph nodes (principal)
CPT/HCPCS: 10005; 88108; 88305

== ENCOUNTER 2024-12-18 00:54 | Day surgery (SDC) | payer MEDICARE, OTHER, SELFPAY ==
--- NOTE | 2024-12-05 12:14 | PC.NURSE ---
Report to the Outpatient Waiting Room, entrance under the green pavilion located off [facility], at time _6 AM on date . Planned Procedure Time: 7:30 AM .? Time changes happen often and if your time is changed the preop area will call you the afternoon before. - You and your visitor will be asked to self-screen and do not enter if you have any COVID symptoms. Please call surgeon if you need to reschedule. - A mask is optional within the hospital at this time. Patients may have clear liquids (water, carbonated beverages, clear teas, apple juice) until 3 hours prior to surgery( 4:30AM) with a maximum of 20 ounces. - No food from midnight until time of surgery and no smoking. This includes no chewing gum, candy or mints. - Infants may have breast milk until 4 hours before surgery, infant formula 6 hours prior to surgery. - Children will be allowed to drink immediately following surgery.? If applicable, please bring a bottle or sippy cup to assist with drinking. Juice, water, soda, and popsicles are readily available.? For infants on formula, please bring formula the day of surgery.? Pacifiers are allowed. Take only the following medications with a SIP of water on the morning of surgery: ___BREZTRI INHALER,BUSPIRONE_,LEVOTHYROXINE DO NOT STOP ANY OF YOUR OTHER PRESCRIPTION MEDICATIONS PRIOR TO SURGERY EXCEPT THE FOLLOWING Medications to discontinue per physician NONE Please no make-up, nail djiboutian, hairspray, perfume, deodorant, or body powder the day of surgery.? No jewelry (including any body piercings) or valuables the day of surgery, leave them at home.? Please take a shower or bath the night before, or the morning of, surgery with an antibacterial soap.? Wear comfortable, loose fitting clothing.? Children are encouraged to wear pajamas. - Jewelry must be removed prior to entering the operating room.? Rings and piercings that are not removed may be cut off. - The hospital will not accept responsibility for valuables.? - Please leave all valuables, including medications, at home the day of surgery. If you are going home after surgery, a licensed local delivery driver must drive you home.? - NO public transportation without another adult if you receive anesthesia. - We recommend that an adult stay with you for 24 hours following discharge. - We also recommend that you do not drive, make important decision, drink alcoholic beverages, or take any drugs that were not prescribed by your health care provider for at least 24 hours after your discharge time. For Pediatric surgeries, we recommend two adults accompany the child home. Follow any additional instructions given to you from your surgeon. Telephone instructions given to __PATIENT and asked if any additional questions and then verbalized understanding. Patient advised to call surgeon office or pre surgery nurse liaison [phone] if any additional questions.
[2024-12-05 12:47] VITALS: BMI 20.5
--- NOTE | 2024-12-10 17:01 | P.HP_ITS ---
History of Present Illness History of Present Illness Consent: Risks, benefits, and alternatives have been discussed and questions answered. Patient agrees to proceed with procedure. Chief complaint: Prostate Ca Narrative: Prem Small is a 74 year old male With known unfavorable intermediate risk prostate cancer diagnosed just over a year ago. He has opted for surveillance protocol. He is now due for a confirmatory biopsy. Because of his severe tremor from Parkinson's disease we have opted to do this under sedation. He is aware of the risks including, but not limited to, adverse cardiopulmonary events, hematuria, urinary tract infection with possible sepsis. Review of Systems Review of Systems: All systems reviewed & are unremarkable except as noted in HPI and below PMFSH Past Medical History Medical History History of kidney stones Prostate cancer Parkinson's disease with dyskinesia Mild persistent asthma Anxiety Essential hypertension Mixed hyperlipidemia Hypothyroidism, unspecified Parkinsons disease Psoriasis Vitamin B12 deficiency Surgical History Surgical History History of removal of cyst History of kidney surgery Hx of hernia repair H/O hand surgery Family History Family History Father Family history of tuberculosis Cerebrovascular accident Sibling Asthma Social History Social History Smoking status: Never smoker Second hand tobacco smoke exposure: Yes Alcohol intake: never Substance use: never Substance use type: does not use Lack of Transportation: No Lack of Food: Never True Current Housing: I Have Housing Concerned About Future Housing: No Difficulty Paying Gas/Electric Bills: No Difficulty Paying for Meds: No Currently Unemployed: No Education: Master's Degree or Higher Living arrangements: alone Occupation/Education: retired Gender identity (if verbalized by the patient): Male Sexual Orientation (if Verbalized by the Patient): Straight or Heterosexual Spiritual care concerns: No Agree to blood products: Yes Meds Home Medications and Allergies Home Medications ?Medication ?Instructions ?Recorded ?Confirmed ?Type albuterol sulfate 90 mcg/actuation 1 puff inhalation Q4H PRN 12/19/22 12/05/24 Rx aerosol inhaler (ProAir HFA) bronchospasm #8.5 grams albuterol sulfate 2.5 mg/3 mL 2.5 mg (3 mL) inhalation Q4-6H PRN 08/09/23 12/05/24 Rx (0.083 %) solution for nebulization bronchospasm #1,080 mL albuterol sulfate 90 mcg/actuation 2 inh inhalation Q4-6H PRN 02/18/24 12/05/24 Rx aerosol inhaler (Ventolin HFA) shortness of breath 90 days #8.5 grams inhalational spacing device #1 ea 02/18/24 11/10/24 Rx (Aerochamber MV spacer) inhalational spacing device #1 ea 02/18/24 11/10/24 Rx (Aerochamber MV spacer) prednisone 10 mg tablet 10 mg PO DIRECTED #30 tabs 02/18/24 12/05/24 Rx fluticasone propionate 50 1 spray intranasal DAILY 05/06/24 12/05/24 History mcg/actuation nasal spray,suspension (Flonase Allergy Relief) budesonide 160 mcg-glycopyr 9 2 inh inhalation QAM AND QPM #3 07/16/24 12/05/24 Rx mcg-formot 4.8 mcg/actuation HFA device inhaler (Breztri Aerosphere) inhalational spacing device #3 ea 07/16/24 11/10/24 Rx (Compact Space Chamber) carbidopa 25 mg-levodopa 100 mg 2 tablet PO QID #240 tabs 09/17/24 12/05/24 Rx tablet (Sinemet) nortriptyline 10 mg capsule 10 mg PO QHS #90 caps 09/17/24 12/05/24 Rx buspirone 10 mg tablet 10 mg PO BID PRN stress #180 tabs 11/10/24 12/05/24 Rx levothyroxine 50 mcg tablet 50 mcg PO DAILY #90 tabs 11/10/24 12/05/24 Rx lisinopril 2.5 mg tablet 2.5 mg PO DAILY #90 tabs 11/10/24 12/05/24 Rx tamsulosin 0.4 mg capsule (Flomax) 0.4 mg PO DAILY #90 caps 11/10/24 12/05/24 Rx thiamine HCl (vitamin B1) 100 mg 100 mg PO DAILY #90 tabs 11/10/24 12/05/24 Rx tablet Allergies Allergy/AdvReac Type Severity Reaction Status Date / Time Iodinated Contrast Media Allergy Mild Hives Verified 12/08/24 14:01 amoxicillin Allergy Unknown Unknown Verified 12/08/24 14:01 tiotropium Allergy Unknown Unknown Verified 12/08/24 14:01 levoloxcin Allergy Unknown Swelling Uncoded 12/05/24 12:17 Assessment and Plan Assessment and plan (1) Prostate cancer: Code(s): C61 - Malignant neoplasm of prostate Status: Acute Assessment and Plan: * Transrectal ultrasound and ultrasound-guided biopsy of the prostate
--- NOTE | 2024-12-17 15:53 | P.PNAN_ITS ---
Anes - Initial Pre Proc Eval Procedure: Operation Date: 12/18/24 07:30 Proposed Procedures p Prostate Ultrasound with Biopsy - Mati Richardson MD Date/Time: 12/17/24 15:53 Surgeon: Mati Richardson MD Pre Op Diagnosis: Prostate Ca Patient Data Age: 74 Gender: M Height: 1.78 m Weight: 64.9 kg Allergies Allergy/AdvReac Type Severity Reaction Status Date / Time Iodinated Contrast Media Allergy Mild Hives Verified 12/18/24 06:34 amoxicillin Allergy Unknown Unknown Verified 12/18/24 06:34 tiotropium Allergy Unknown Unknown Verified 12/18/24 06:34 levoloxcin Allergy Unknown Swelling Uncoded 12/18/24 06:34 Home Medications ?Medication ?Instructions ?Recorded ?Confirmed ?Type albuterol sulfate 90 mcg/actuation 1 puff inhalation Q4H PRN 12/19/22 12/05/24 Rx aerosol inhaler (ProAir HFA) bronchospasm #8.5 grams albuterol sulfate 2.5 mg/3 mL 2.5 mg (3 mL) inhalation Q4-6H PRN 08/09/23 12/05/24 Rx (0.083 %) solution for nebulization bronchospasm #1,080 mL albuterol sulfate 90 mcg/actuation 2 inh inhalation Q4-6H PRN 02/18/24 12/05/24 Rx aerosol inhaler (Ventolin HFA) shortness of breath 90 days #8.5 grams inhalational spacing device #1 ea 02/18/24 11/10/24 Rx (Aerochamber MV spacer) inhalational spacing device #1 ea 02/18/24 11/10/24 Rx (Aerochamber MV spacer) prednisone 10 mg tablet 10 mg PO DIRECTED #30 tabs 02/18/24 12/05/24 Rx fluticasone propionate 50 1 spray intranasal DAILY 05/06/24 12/05/24 History mcg/actuation nasal spray,suspension (Flonase Allergy Relief) budesonide 160 mcg-glycopyr 9 2 inh inhalation QAM AND QPM #3 07/16/24 12/18/24 Rx mcg-formot 4.8 mcg/actuation HFA device inhaler (Breztri Aerosphere) inhalational spacing device #3 ea 07/16/24 11/10/24 Rx (Compact Space Chamber) carbidopa 25 mg-levodopa 100 mg 2 tablet PO QID #240 tabs 09/17/24 12/05/24 Rx tablet (Sinemet) nortriptyline 10 mg capsule 10 mg PO QHS #90 caps 09/17/24 12/05/24 Rx buspirone 10 mg tablet 10 mg PO BID PRN stress #180 tabs 11/10/24 12/05/24 Rx levothyroxine 50 mcg tablet 50 mcg PO DAILY #90 tabs 11/10/24 12/05/24 Rx lisinopril 2.5 mg tablet 2.5 mg PO DAILY #90 tabs 11/10/24 12/05/24 Rx tamsulosin 0.4 mg capsule (Flomax) 0.4 mg PO DAILY #90 caps 11/10/24 12/05/24 Rx thiamine HCl (vitamin B1) 100 mg 100 mg PO DAILY #90 tabs 11/10/24 12/18/24 Rx tablet Patient hx anesthesia problems: none Family hx anesthesia problems: none Results Review: All pre-operative results and documents have been reviewed as part of the pre- operative evaluation. [facility] Past Medical History Medical History History of kidney stones Prostate cancer Parkinson's disease with dyskinesia Mild persistent asthma Anxiety Essential hypertension Mixed hyperlipidemia Hypothyroidism, unspecified Parkinsons disease Psoriasis Vitamin B12 deficiency Surgical History Surgical History History of removal of cyst History of kidney surgery Hx of hernia repair H/O hand surgery Family History Family History Father Family history of tuberculosis Cerebrovascular accident Sibling Asthma Social History Social History Smoking status: Never smoker Second hand tobacco smoke exposure: Yes Alcohol intake: never Substance use: never Substance use type: does not use Lack of Transportation: No Lack of Food: Never True Current Housing: I Have Housing Concerned About Future Housing: No Difficulty Paying Gas/Electric Bills: No Difficulty Paying for Meds: No Currently Unemployed: No Education: Master's Degree or Higher Living arrangements: with family Occupation/Education: retired Gender identity (if verbalized by the patient): Male Sexual Orientation (if Verbalized by the Patient): Straight or Heterosexual Spiritual care concerns: No Agree to blood products: Yes Anes - Eval Final PreProcedure Day of Procedure 12/17/24 15:53 Patient weight: normal Heart: regular rate and rhythm Lungs: clear to auscultation and normal air movement Airway: Mallampati scale class II Neurological: alert and oriented Last oral intake: >/= 8 hours ASA classification: III Emergent: no Anesthetic plan: proceed Anesthesia type and monitoring: general GIVS and standard monitoring Results Review: All pre-operative results and documents have been reviewed as part of the pre- operative evaluation. Informed Consent: The patient's anesthetic plan and its attendant risks and benefits were discussed with the patient/family/POA. Questions were solicited and answers provided to the satisfaction of the patient/family/POA.
[2024-12-18 06:05] VITALS: BP 148/80; PULSE 60; RESP 18; TEMP 36.8; O2SAT 100
--- NOTE | 2024-12-18 06:22 | WPDHPUPDATE1 ---
History and Physical Update Update Date/Time: 12/18/24 06:22 History and Physical has been reviewed, including an updated exam of the patient. There are NO changes in the patient's condition. Risks, benefits, and alternatives have been discussed and questions answered. Patient agrees to proceed with procedure.
[2024-12-18] MEDS: LACTATED RINGERS 1,000 ML 30 ML IV CONT (06:30)
[2024-12-18] MEDS: ceFAZolin 2 GM/D5W 50 ML 2 GM/50 ML BAG IVPB (07:26)
[2024-12-18 07:51] VITALS: BP 127/95; PULSE 83; RESP 16; O2SAT 97
--- NOTE | 2024-12-18 07:53 | W.PM.PROC2 ---
Procedure Note - Detailed Date of Procedure 12/18/24 Pre-op Diagnosis Prostate Ca Post-op Diagnosis Same Procedure Performed Transrectal ultrasound prostate, transrectal guided biopsy prostate Surgeon Mati Richardson MD Anesthesia MAC Description of Procedure The patient was place in a left lateral position after administration of systemic sedation by the anesthesia department. Transrectal ultrasound of the prostate is undertaken at 6.0Hz. The prostate capsule is intact and the tissue has a normal echo texture. There is a small median lobe and minimal PVR in the bladder. The seminal vesicles have a normal appearance ultrasonically. The prostate measured 27.7gm in size. Using ultrasound guidance a total of 12 biopsy cores are obtained. The ultrasound probe was removed and the patient was taken to the recovery room in good condition. Pathology Yes Complications No immediate complications Condition Stable Disposition PACU
[2024-12-18 08:20] VITALS: BP 134/86; PULSE 56; RESP 16; O2SAT 97
[2024-12-18 08:50] VITALS: BP 130/82; PULSE 64; RESP 18
[2024-12-18 09:20] VITALS: BP 120/64; PULSE 70; RESP 18
--- OUTSIDE RECORDS SUMMARY | 2024-12-19 03:44 | XMS_ITS ---
Author Organization [facility] Address [address] [place] [address] Care Team Providers Care Cosmetology Instructor Name Role Phone Ana Arora Primary Care Provider UnavailEugenia Laughlin Unavailable [phone] Bettina Ayala Unavailable Unavailable Allergies Allergen (clinical drug ingredient) Drug/Non Drug Allergy documented on EMR Reaction Allergy Type Onset Date Status amoxicillin Amoxicillin (uncoded) Unknown Allergy Active Iodinated contrast media (substance) Iodinated Contrast Media (uncoded) Hives Allergy Active Sulfameth/Trimethop rim (uncoded) Swollen gland in neck Allergy Active tiotropium Tiotropium (uncoded) Unknown Allergy Active amoxicillin Amoxicillin unknown reaction Drug Allergy Active Iodinated contrast media (substance) Iodinated Contrast Media unknown reaction Drug Allergy Active tiotropium Tiotropium unknown reaction Drug Allergy Active REASON FOR VISIT Asthma - previously not on controller inhaler with JOSE and albuterol nebulizer use multiple times per day. Breztri started after initial visit with overall improvement. Reports JOSE use 1-2 times inpast month with no interval steroids. Tezspire initiated 08/21/24 with no interval JOSE use. ACT 25. Medications Medication SIG (Take, Route, Frequency, Duration) Notes Start Date End Date Status Advair HFA 115-21 MCG/ACT 2 puffs Inhalation Twice a day Not-Taking Trihexyphenidyl HCl 2 MG 1 tablet Orally Twice a day Not-Taking predniSONE 10 MG 1 tablet Orally Once a day used rarely Not-Taking Lisinopril 2.5 MG 1 tablet Orally Once a day Active Levothyroxine Sodium 50 MCG 1 tablet in the morning on an empty stomach Orally Once a day Active Tamsulosin HCl 0.4 MG 1 capsule Orally Once a day Not-Taking Multivitamin - 1 tablet Orally Once a day Active Prevagen 10 MG as directed Orally Active busPIRone HCl 10 MG 1 tablet Orally Twice a day Not-Taking Nortriptyline HCl 10 MG 1 capsule Orally at bedtime Not-Taking Flonase Allergy Relief 50 MCG/ACT 1 spray in each nostril Nasally Once a day Not-Taking AeroChamber MV - as directed for 30 days Any adult spacer 10/16/2024 Active Carbidopa-Levodopa 25-250 MG 1 tablet Orally four times a day Active Albuterol Sulfate (2.5 MG/3ML) 0.083% 3 mL as needed Inhalation every 6 hrs Active Tezspire 210 MG/1.91ML as directed Subcutaneous Active Breztri Aerosphere 160-9-4.8 MCG/ACT 2 puffs Inhalation Twice a day for 90 days Active predniSONE 20 MG 2 tablet Orally Once a day for 5 days Active Social History Tobacco Use: Social History Observation Description Date Details (start date - stop date) Never Smoker NA - NA Tobacco Control (Standard) Question Answer Notes Tobacco use: Nonsmoker Vital Signs Blood pressure systolic 140 mm Hg 10/16/20 24 Blood pressure diastolic 68 mm Hg 024 Oximetry 98 % 10/16/2024 Height 70 in 10/16/2024 Weight 147.8 lbs 10/16/2024 BMI 21.2 kg/m2 10/16/2024 Encounters Encounter Location Date Provider Diagnosis [facility] [address] [facility] [address] [place] [id number] 10/16/2024 Eugenia Barragan Severe persistent asthma, uncomplicated J45.50 ; Wheezing R06.2 ; Hypertrophy of nasal turbinates J34.3 ; Chronic rhinitis J31.0 ; Parkinsonism, unspecified G20.C and Essential (primary) hypertension I10 Assessments Encounter Date Diagnosis (ICD Code) Assessment Notes Treatment Notes Treatment Clinical Notes Section Notes 10/16/2024 Severe persistent asthma, uncomplicated (ICD-10 - J45.50) Prem displayed audible inspiratory and expiratory wheezing at initial visit. Of note, wheezing seemed to decrease when he was calmer at end of visit. Patient demonstrated a poor understanding of disease process as he reported no immediate relief from Advair, so did not use. Also was only using albuterol nebulizer for 1-2 minutes at a time multiple times throughout the day. Last visit, reported overall improvement since adhering to Breztri BID with JOSE use 1- 2 times, still using nebulizer only for 1-2 minutes. Tezspire initiated in 08/21/24. Today, reports he is feeling well with no interval JOSE use. ACT 25 today. - Records show PFTs from 12/2022, confirming asthma diagnosis with a positive bronchodilator response. Pre-BD FEV1 1.06L and post-BD FEV1 1.38L, a 320cc increase, representing a 30% increase. - Last spirometry showed reduced FVC, FEV1, FEV% suggesting severe obstruction. FVC increased by 670cc and FEV1 increased by 400cc compared to 05/2024 spirometry. FVL shows scalloping and reduced flow rates throughout exhalation. Advanced lung age. Will plan fore repeat spirometry when on Tezspire for 3-6 months. - Will continue Breztri 2 inhalations BID. Instructed to brush teeth after inhalation. Continue JOSE PRN. Refills sent for Breztri and spacer. - PFTs from 12/2022: decreased maximal expiratory airflow at all lung volumes with concave expiratory flow tracing. Total Lung capacity is 6.49L. Impression: Very severe obstructive abnormality with significant improvement after inhaling a single dose of albuterol. The increase in residual volume is consistent with air trapping from an obstructive abnormality. - Normal Alpha-1 swab from 12/2022; MM=normal phenotype. Obtained due to hyperinflation on chest Xray in 02/2022. Consider High-resolution chest CT. - Biologic workup ordered - Total IgE 216 and Abs eosinophil count 200. Abs neutrophil count 8.3 with normal WBC count. Consider repeat per PCP. Results forwarded to Dr. Arora. - Discussed potential need for biologic therapy given severe obstruction on spirometry and persistent symptoms despite Breztri, daily JOSE use and ongoing prednisone use. Discussed with Dr. Paredes, Dr. Ayala and Prem and in agreement to start Tezspire. We decided to initiate treatment on 08/21/24 with TEZSPIRE and continued today. Risk, benefits and alternatives of care were discussed. - Prem received Tezspire dosing today without issue. He is to return in one month for his next dose. - AAP reviewed at length. - Consider LTRA, will hold off at this time given history of anxiety - Received annual influenza and Covid-19 vaccines. Plans to receive RSV vaccine in the interim. - Follow-up in 1 month for E&M, Tezspire, repeat spirometry 10/16/2024 Wheezing (ICD-10 - R06.2) Lungs clear on exam today. 10/16/2024 Hypertrophy of nasal turbinates (ICD-10 - J34.3) Concern for allergies flaring asthma. He has never undergone skin testing. Of note, patient denies upper airway symptoms. - ImmunoCaps ordered showing undetectable to all aeroallergens. Total IgE 216. 10/16/2024 Chronic rhinitis (ICD-10 - J31.0) As stated above 10/16/2024 Parkinsonism, unspecified (ICD-10 - G20.C) Given diagnosis of neurodegenerative disease, concerning that this may be playing a role is his severe lower airway obstruction. 10/16/2024 Essential (primary) hypertension (ICD-10 - I10) BP WNL today. Continue serial checks and follow-up with PCP 10/16/2024 Other Plan Of Treatment Medication Medication Name Sig Start Date Stop Date Notes AeroChamber MV - as directed for 30 days 10/16/2024 Albuterol Sulfate (2.5 MG/3ML) 0.083% 3 mL as needed Inhalation every 6 hrs Tezspire 210 MG/1.91ML as directed Subcutaneous Breztri Aerosphere 160-9-4.8 MCG/ACT 2 puffs Inhalation Twice a day for 90 days predniSONE 20 MG 2 tablet Orally Once a day for 5 days Treatment Notes Assessment Notes Severe persistent asthma, uncomplicated Prem displayed audible inspiratory and expiratory wheezing at initial visit. Of note, wheezing seemed to decrease when he was calmer at end of visit. Patient demonstrated a poor understanding of disease process as he reported no immediate relief from Advair, so did not use. Also was only using albuterol nebulizer for 1-2 minutes at a time multiple times throughout the day. Last visit, reported overall improvement since adhering to Breztri BID with JOSE use 1- 2 times, still using nebulizer only for 1-2 minutes. Tezspire initiated in 08/21/24. Today, reports he is feeling well with no interval JOSE use. ACT 25 today. - Records show PFTs from 12/2022, confirming asthma diagnosis with a positive bronchodilator response. Pre-BD FEV1 1.06L and post-BD FEV1 1.38L, a 320cc increase, representing a 30% increase. - Last spirometry showed reduced FVC, FEV1, FEV% suggesting severe obstruction. FVC increased by 670cc and FEV1 increased by 400cc compared to 05/2024 spirometry. FVL shows scalloping and reduced flow rates throughout exhalation. Advanced lung age. Will plan fore repeat spirometry when on Tezspire for 3-6 months. - Will continue Breztri 2 inhalations BID. Instructed to brush teeth after inhalation. Continue JOSE PRN. Refills sent for Breztri and spacer. - PFTs from 12/2022: decreased maximal expiratory airflow at all lung volumes with concave expiratory flow tracing. Total Lung capacity is 6.49L. Impression: Very severe obstructive abnormality with significant improvement after inhaling a single dose of albuterol. The increase in residual volume is consistent with air trapping from an obstructive abnormality. - Normal Alpha-1 swab from 12/2022; MM=normal phenotype. Obtained due to hyperinflation on chest Xray in 02/2022. Consider High-resolution chest CT. - Biologic workup ordered - Total IgE 216 and Abs eosinophil count 200. Abs neutrophil count 8.3 with normal WBC count. Consider repeat per PCP. Results forwarded to Dr. Arora. - Discussed potential need for biologic therapy given severe obstruction on spirometry and persistent symptoms despite Breztri, daily JOSE use and ongoing prednisone use. Discussed with Dr. Paredes, Dr. Ayala and Prem and in agreement to start Tezspire. We decided to initiate treatment on 08/21/24 with TEZSPIRE and continued today. Risk, benefits and alternatives of care were discussed. - Prem received Tezspire dosing today without issue. He is to return in one month for his next dose. - AAP reviewed at length. - Consider LTRA, will hold off at this time given history of anxiety - Received annual influenza and Covid-19 vaccines. Plans to receive RSV vaccine in the interim. - Follow-up in 1 month for E&M, Tezspire, repeat spirometry Wheezing Lungs clear on exam today. Hypertrophy of nasal turbinates Concern for allergies flaring asthma. He has never undergone skin testing. Of note, patient denies upper airway symptoms. - ImmunoCaps ordered showing undetectable to all aeroallergens. Total IgE 216. Chronic rhinitis As stated above Parkinsonism, unspecified Given diagnosi s of neurodegenerative disease, concerning that this may be playing a role is his severe lower airway obstruction. Essential (primary) hypertension BP WNL today. Continue serial checks and follow-up with PCP Next Appt Details Follow Up: 4 Weeks, Reason: Evaluation and Management,TEZSPIRE Administration Provider Name:Eugenia sanz, 01/08/2025 01:30:00 PM, [facility], [address], [place], [address], Procedure Notes * Category Sub-Category Detail Notes TEZSPIRE (tezepelumab-ekko) Administration Dosing Time / Vitals Hoda Laguna 10/16/2024 02:03:45 PM COMMISSIONER OF CONCILIATION >, See initial vitals Dose Concentration/Dosing : 210 mg (110 mg/mL) / 1.91 mL subcutaneous injection Location [facility] Reaction None Frequency Interval:: Monthly Lot Number / Expiration Lot Number: [id number] , Expiration: 01/23/2026 Post-procedural check-out: Vital signs t aken 30 minutes after dosin/60 96% 82P Medication Source TEZSPIRE Source: Buy and Bill Progress Notes * Sunita COREAShDOB:[birth year] (74 yo M)Acc No.[id number]:10/16/2024 TEZSPIRE Adiministration Vis it Patient:?Prem COREAS Provider:?OBIE López :1950???Age:74 Y???Sex:Male Juan e:10/16/2024 Address:[address] [place], [place] [id number] Pcp:Ana Arora Subjective: * Chief Complaints: * ???Asthma - previously not o n controller inhaler with JOSE and albuterol nebulizer use multiple times per day. Breztri started after initial visit with overall improvement. Reports JOSE use 1-2 times in past month with no interval steroids. Tezspire initiated 08/21/24 with no interval JOSE use. ACT 25. * HPI: ???*Introduction:?I had the pleasure of seeing?Prem Coreas, a 74 year-old male with ahistory of Parkinson's disease and severe-persistent asthma here today in referral from Dr.Barbara Ayala for interval evaluation and management and to continue treatment with Tezspire. He is alone fortoday's visit. At initial visit, Prem was actively wheezing on inhalation and exhalation. Per sister, he was very stressed for appointment. Prem reports when he is anxious, his wheezing is exacerbated. His previous treatment for asthma consisted of Advair HFA and JOSE PRN per record review from Dr. Ayala's office. Records reviewed confirm bronchdilator reversibility on PFTs. At initial visit, Prem was not using Advair, only using his JOSE or albuterol nebulizer multiple times per day. Per sister, he used his albuterol nebulizer for 1-2 minutes multiple times throughout the day. He does not sit for a full treatment. He was prescribed Advair diskus at one time, but was unable to use appropriately due to his Parkinson's. Additionally, he reports using prednisone PRN, often daily. He was previously prescribed prednisone for 30 days in a row for stress and asthma. After initial visit, Breztri BID was initiated as well as 5 days OCS. Prem reported overall improvement in lower airways symptoms with JOSE use 1-2 times since last visit. Still with SOB with exertion and prolonged periods of talking. In effort to aid in symptom control and obstruction on spirometry, Tezspire was initated on 08/21/24. He reports no OCS use since prescribed by our office.? Today, he continues to report he has been doing great with no interval JOSE use. ACT 25.? Prem was referred dueto concerns for allergies exacerbating his lower airway symptoms. Prem does not perceive any upper airwaysymptoms at this time. ImmunoCaps obtained after last visit were undetectable. Total IgE 216. He deniesfrequent infections. He denies intubations, PNA diagnosis. His last Pneumovaxwas in 2019.He has never undergone allergy skin testing or received allergy immunotherapy.Per record review, he was previously usingAdvair HFA 115/21 1 puff BID as controller. He had 1 visit to ER in 02/2022,with Chest xray showing hyperinflation. He was on oxygen briefly at that time.He was diagnosed with Parkinson's in 2001 and has been relatively stable, though he has aspirated in the past. In 12/2022 he had abnormal modified barium swallow.Laryngeal penetration with uncontrolled thick liquids via straw. In 12/2022,alpha 1 swab done and was normal. He denies a history of physician-diagnosed allergic rhinitis, recurrent sinusitis or otitis media, recurrent pneumonia, eczema, food allergies, urticaria/angioedema, medication allergies, contact dermatitis, latex allergy, eosinophilic esophagitis or stinging insect hypersensitivity. Today, he reports no fevers, chills, night sweats or other constitutional symptoms.?The patient is here for scheduled immunotherapy with TEZSPIRE. Please see the attached specialty form regarding the specifics of the administration of this medication. As per our protocol, they must undergo a screening health questionnaire (medication changes, reaction(s) to last immunotherapy dose(s), current health status, ACT (if appropriate), self-injectable epinephrine on patient(?) and peak flow (if appropriate)). * ROS:?ALLERGY:?Positive?per the HPI and history, otherwise unremarkable.?SPECIAL SENSES:?Positve for?none.?CONSTITUTIONAL:?Positive for?none.?ENT:?Positive?per the HPI and history, otherwise unremarkable.?RESPIRATORY:?Positive?per the HPI and history, otherwise unremakable.?OPHTHALMOLOGY:?Positive for?per the HPI and history, otherwise unremarkable.?ENDOCRINOLOGY:?Positive for?none.?CARDIOLOGY:?Positive for?none.?GASTROENTEROLOGY:?Positive for?none.?UROLOGY:?Positive for?none.?DERMATOLOGY:?Positive for?per the HPI and history, otherwise unremakable.?NEUROLOGY:?Positive for?none.?HEMATOLOGY/LYMPH:?Positive for?none.?MUSCULOSKELETAL:?Positive for?none.?PSYCHOLOGY:?Positive for?none.?All other review of systems per the HPI and history, otherwise unremarkable. * Medical History:? * Surgical History:?cyst remov al 2023 * Hospitalization/Major Diagno stic Procedure:?ER visits for breathing * Family History:?Father: dece ased 62 yrs, Stroke.?Mother: 93 yrs, heart failure.?Siblings: alive, myasthenia gravis-sister.?1 sister(s) . .? * Social History:?Marital Status?What is your marital status?Alcohol Screening?Do you ever drink alcoholic beverages??No ???Smoking?Are you a :?never smoker ???Recreational drug use?Have you ever used recreational drugs??No ???Details on consumption of certain products?Do you regularly consume products with aspartame; Equal or NutraSweet??No ?Do you regularly consume products with artificial coloring??Yes ?Have you ever noticed worsening of your rash with these food items??No ???Are any of the following personal care products containing fragrance, dye or preservatives used regularly?Shampoo:?Yes ?Conditioner:?No ?Soap:?Yes ?Laundry Detergent:?Yes ?Fabric Softener:?No ?Deodorant:?Yes ?Perfume, cologne, after shave:?No ?Air freshners or other scented products:?No ?Hair coloring dyes or rinses:?No ?Other:?No ???Occupation?Are you currenly employed??No ?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,shipyard ?Have you had any job with high exposure to fumes, chemicals, dust or other noxious substances??Yes ?Are you currently a student??No ???Environmental History?Living environment:?alone ?Age of home:?28 ?How long have you lived there??5 years or more ?How many people live in the home??1 ???Home description?Basement:?No ?Smokers in the home??No ?Smokers outside the home??No ?Air Conditioning??Yes ?Central Air??Yes ?Forced air heating??Yes ?Gas or electric??electric ?Fireplace??No ?Wood burning stove??No ?Do you vacuum the home??No ?Air purification systems??No ?Pillow and mattress dust-proof encasings??No ?Do you use a humidifier??No ?Do you own any pets??No ?Fabric softeners used??No ?Plants in the home??No ?Is there carpeting in your bedroom??Yes ?Age of carpet??27 ?Do you have [id number] carpeting??Yes ?What is the age of your carpeting??27 ?What is the age of your mattress (years)??14 ?What material(s) are used to manufacture your bedding and pillow??natural fiber (e.g. cotton) ?What material are your bedding items made of??synthetic ?Do you sleep with quilts or blankets or a duvet??Yes ?What material??synthetic ???Tobacco Control (Standard)?Tobacco use:?Nonsmoker * Medications:?TakingBreztri A erosphere 160-9-4.8 MCG/ACT Aerosol 2 puffs Inhalation Twice a day Tezspire 210 MG/1.91ML Solution Prefilled Syringe as directed Subcutaneous Carbidopa-Levodopa 25-250 MG Tablet 1 tablet Orally four times a day Prevagen 10 MG Capsule as directed Orally Multivitamin - Tablet 1 tablet Orally Once a day Levothyroxine Sodium 50 MCG Tablet 1 tablet in the morning on an empty stomach Orally Once a day Lisinopril 2.5 MG Tablet 1 tablet Orally Once a day Taking Breztri Aerosphere 160-9-4.8 MCG/ACT Aerosol 2 puffs Inhalation Twice a day Taking Tezspire 210 MG/1.91ML Solution Prefilled Syringe as directed Subcutaneous Taking Carbidopa-Levodopa 25-250 MG Tablet 1 tablet Orally four times a day Taking Prevagen 10 MG Capsule as directed Orally Taking Multivitamin - Tablet 1 tablet Orally Once a day Taking Levothyroxine Sodium 50 MCG Tablet 1 tablet in the morning on an empty stomach Orally Once a day Taking Lisinopril 2.5 MG Tablet 1 tablet Orally Once a day Not-Taking/PRNpredniSONE 20 MG Tablet 2 tablet Orally Once a day Albuterol Sulfate (2.5 MG/3ML) 0.083% Nebulization Solution 3 mL as needed Inhalation every 6 hrs Flonase Allergy Relief 50 MCG/ACT Suspension 1 spray in each nostril Nasally Once a day Tamsulosin HCl 0.4 MG Capsule 1 capsule Orally Once a day Nortriptyline HCl 10 MG Capsule 1 capsule Orally at bedtime busPIRone HCl 10 MG Tablet 1 tablet Orally Twice a day Trihexyphenidyl HCl 2 MG Tablet 1 tablet Orally Twice a day Advair HFA 115-21 MCG/ACT Aerosol 2 puffs Inhalation Twice a day predniSONE 10 MG Tablet 1 tablet Orally Once a day , Notes to Pharmacist: used rarelyMedication List reviewed and reconciled with the patientNot-Taking/PRN predniSONE 20 MG Tablet 2 tablet Orally Once a day Not-Taking/PRN Albuterol Sulfate (2.5 MG/3ML) 0.083% Nebulization Solution 3 mL as needed Inhalation every 6 hrs Not-Taking/PRN Flonase Allergy Relief 50 MCG/ACT Suspension 1 spray in each nostril Nasally Once a day Not-Taking/PRN Tamsulosin HCl 0.4 MG Capsule 1 capsule Orally Once a day Not-Taking/PRN Nortriptyline HCl 10 MG Capsule 1 capsule Orally at bedtime Not-Taking/PRN busPIRone HCl 10 MG Tablet 1 tablet Orally Twice a day Not-Taking/PRN Trihexyphenidyl HCl 2 MG Tablet 1 tablet Orally Twice a day Not-Taking/PRN Advair HFA 115-21 MCG/ACT Aerosol 2 puffs Inhalation Twice a day Not-Taking/PRN predniSONE 10 MG Tablet 1 tablet Orally Once a day , Notes to Pharmacist: used rarelyMedication List reviewed and reconciled with the patient * Allergies:?Iodinated Contras t Media: HivesAmoxicillinTiotropiumSulfameth/Trimethoprim: Swollen gland in neckIodinated Contrast Media: unknown reactionAmoxicillin: unknown reactionTiotropium: unknown reactionno[Allergies Verified] Objective: * Vitals:?BP:140/68mm Hg, HR:8 4/min, Pulse Oximetry:98%, ACT:25, Ht: 70 in, Wt: 147.8 lbs, BMI:21.2Index. * Examination: ???General examination: ?General appearance:?pleasant, well-developed, well-nourished.?HEENT:?pupils equal, round, and reactive to light and accommodation, conjunctiva are injected bilaterally, TMs without evidence of acute infection, wax in ear canals, turbinates 2+ swollen and pale inferiorly bilaterally, no polyps noted,, no tongue swelling, and uvula is midline.?Oral cavity:?normal, no lesions.?Breasts :?not performed.?Heart:?RRR, S1-S2, no murmurs, no rubs, no gallops.?Lungs:?clear to auscultation in all lung higgins, no wheezes, no crackles, no rhonchi.?Neurologic exam:?unremarkable.?Skin:?normal, no rash, dermatographism, urticaria, angioedema.?Peripheral pulses:?normal (2+) bilaterally.?Back:?normal.?Extremities:?normal ROM, no clubbing, no cyanosis, no edema.?Genitalia:?not performed.? Assessment: * Assessment: 1.?Severe persistent asthma, uncomplicated - J45.50 (Primary)???2.?Wheezing - R06.2???3.?Hypertrophy of nasal turbinates - J34.3???4.?Chronic rhinitis - J31.0???5.?Parkinsonism, unspecified - G20.C???6.?Essential (primary) hypertension - I10??? Plan: * Treatment: 2.?Wheezing? Hold predniSONE Tablet, 20 MG, 2 tablet, Orally, Once a day, 5 days, 10 Tablet, Refills 0.?? Notes: Lungs clear on exam today. ?? 3.?Hypertrophy of nasal turb inates? Notes: Concern for allergies flaring asthma. He hasnever undergone skin testing. Of note,patient denies upper airway symptoms. -ImmunoCaps ordered showing undetectable to all aeroallergens. Total IgE 216.?? 4.?Chronic rhinitis? Notes: As stated above?? 5.?Parkinsonism, unspecified ? Notes: Given diagnosis of neurodegenerative disease, concerning that this may be playing a role is his severe lower airway obstruction. ?? 6.?Essential (primary) hyper tension? Notes: BP WNL today. Continue serial checks and follow-up with PCP?? * Procedures:?TEZSPIRE (tezepelumab-ekko) Administration:?Dosing Time / Vitals?Hoda Laguna 10/16/2024 02:03:45 PM COMMISSIONER OF CONCILIATION >, See initial vitals.?Dose ?Concentration/Dosing?210 mg (110 mg/mL) / 1.91 mL subcutaneous injection ?Location?[facility].?Reaction?None.?Frequency ?Interval:?Monthly ?Lot Number / Expiration?Lot Number: [id number] , Expiration: 01/23/2026.?Post-procedural check-out:?Vital signs taken 30 minutes after dosin/60 96% 82P.?Medication Source ?TEZSPIRE Source?Buy and Bill? * Procedure Codes:?33768 PT-FO CUSED HLTH RISK [id number] DOC MEDS VERIFIED W/PT OR [id number] THER/PROPH/DIAG INJ, [id number] TEZSPIRE 210 mg - 1 unit (1 mg), Units: 210.00 , Modifiers: JZ * Preventive Medicine:? ??Counseling:?Diet?as tolerated.?Exercise?Continue activity as usual, Consider JOSE use PRN, prior to exercise as per the asthma action plan.?Medication instruction:?Watch for side effects of prescribed medications, , Use prescribed inhaler(s) with spacer. If taking a inhaled corticorsteroid rinse out mouth after use and brush teeth. Oral hygiene reviewed at length., [place] teeth or rinse out mouth after the use of oral, inhaled steroids to prevent oral thrush, Use 2 puffs of JOSE with spacer prior to exercise and environmental exposures known to cause wheezing.?Education:?GENERAL EDUCATION: Our staff spent an additional 30 minutes in direct contact with the patient educating them on their current diagnoses and proper treatment and prevention of symptoms and the proper use of medications, ASTHMA EDUCATION:, Our staff discussed pulmonary function testing and results with the patient/family, Our staff reviewed the patient's asthma action plan, Our staff trained the patient on the appropriate use of MDI/DPI/Respimat/spacer/nebulizer treatments for future use.?Patient education material?sent to portal??Yes * Follow Up:?4 Weeks (Reason: Evaluation and Management,TEZSPIRE Administration) * Billing Information: * Visit Code:? 01290 Office Visit, Est Pt., Level 4. Modifiers: 25 * Procedure Codes:? 00650 PT-FOCUSED HLTH RISK ASSMT. G8427 DOC [place]S VERIFIED W/[place]. [address] THER/PROPH/DIAG INJ, SC/IM. J2356 TEZSPIRE 210 mg - 1 unit (1 mg). Units: 210.00. Modifiers: JZ * ISSIONER OF CONCILIATION Electronically co-signed by Michael Paredes MD, FAAAAI on 11/30/2024 at 07:53 PM COMMISSIONER OF CONCILIATION Sign off status: Completed true * Provider:?OBIE López Juan e:?10/16/2024 Generated for Franciscai ng/Faireneg/eTransmitting on:?12/19/2024 03:44 AM COMMISSIONER OF CONCILIATION History and Physical Notes * HPI (History of Present Illness) Category Sub-Category Detail Notes Category Notes *Introduction I had the pleasure of seeing Prem Coreas, a 74 year-old male with a history of Parkinson's disease and severe-persistent asthma here today in referral from Dr. Bettina Ayala for interval evaluation and management and to continue treatment with Tezspire. He is alone for today's visit. At initial visit, Prem was actively wheezing on inhalation and exhalation. Per sister, he was very stressed for appointment. Prem reports when he is anxious, his wheezing is exacerbated. His previous treatment for asthma consisted of Advair HFA and JOSE PRN per record review from Dr. Ayala's office. Records reviewed confirm bronchdilator reversibility on PFTs. At initial visit, Prem was not using Advair, only using his JOSE or albuterol nebulizer multiple times per day. Per sister, he used his albuterol nebulizer for 1-2 minutes multiple times throughout the day. He does not sit for a full treatment. He was prescribed Advair diskus at one time, but was unable to use appropriately due to his Parkinson's. Additionally, he reports using prednisone PRN, often daily. He was previously prescribed prednisone for 30 days in a row for stress and asthma. After initial visit, Breztri BID was initiated as well as 5 days OCS. Prem reported overall improvement in lower airways symptoms with JOSE use 1-2 times since last visit. Still with SOB with exertion and prolonged periods of talking. In effort to aid in symptom control and obstruction on spirometry, Tezspire was initated on 08/21/24. He reports no OCS use since prescribed by our office. Today, he continues to report he has been doing great with no interval JOSE use. ACT 25. Prem was referred due to concerns for allergies exacerbating his lower airway symptoms. Prem does not perceive any upper airway symptoms at this time. ImmunoCaps obtained after last visit were undetectable. Total IgE 216. He denies frequent infections. He denies intubations, PNA diagnosis. His last Pneumovax was in 2019. He has never undergone allergy skin testing or received allergy immunotherapy. Per record review, he was previously using Advair HFA 115/21 1 puff BID as controller. He had 1 visit to ER in 02/2022, with Chest xray showing hyperinflation. He was on oxygen briefly at that time. He was diagnosed with Parkinson's in 2001 and has been relatively stable, though he has aspirated in the past. In 12/2022 he had abnormal modified barium swallow. Laryngeal penetration with uncontrolled thick liquids via straw. In 12/2022, alpha 1 swab done and was normal. He denies a history of physician-diagnosed allergic rhinitis, recurrent sinusitis or otitis media, recurrent pneumonia, eczema, food allergies, urticaria/angioedema, medication allergies, contact dermatitis, latex allergy, eosinophilic esophagitis or stinging insect hypersensitivity. Today, he reports no fevers, chills, night sweats or other constitutional symptoms The patient is here for scheduled immunotherapy with TEZSPIRE. Please see the attached specialty form regarding the specifics of the administration of this medication. As per our protocol, they must undergo a screening health questionnaire (medication changes, reaction(s) to last immunotherapy dose(s), current health status, ACT (if appropriate), self-injectable epinephrine on patient(?) and peak flow (if appropriate)). Examination Category Sub-Category Detail Notes Category Not es General examination HEENT: pupils equal , round, and reactive to light and accommodation, conjunctiva are injected bilaterally, TMs without evidence of acute infection, wax in ear canals, turbinates 2+ swollen and pale inferiorly bilaterally, no polyps noted,, no tongue swelling, and uvula is midline Heart: RRR, S1-S2, no murmu rs, no rubs, no gallops Lungs: clear to auscultatio n in all lung higgins, no wheezes, no crackles, no rhonchi Extremities: normal ROM, no clubb ing, no cyanosis, no edema General appearance: pleasant, well-devel oped, well-nourished Skin: normal, no rash, kinsey matographism, urticaria, angioedema Neurologic exam: unremarkable Oral cavity: normal, no lesions Breasts : not performed Peripheral pulses: normal (2+) bilatera lly Back: normal Genitalia: not performed
--- OUTSIDE RECORDS SUMMARY | 2024-12-19 03:44 | XMS_ITS ---
Author Organization [facility] Address [address] [place] [address] Care Team Providers Care Cement Breaker Name Role Phone Ana Arora Primary Care Provider UnavailEugenia Laughlin Unavailable [phone] Bettina Ayala Unavailable Unavailable Allergies Allergen (clinical [...] after initial visit with overall improvement. Reports no interval JOSE use in past month with no interval steroids. Tezspire initiated 08/21/24 with no interval JOSE use. ACT 25. Medications Medication SIG (Take, Route, Frequency, Duration) Notes Start Date End Date Status AeroChamber MV - as directed for 30 days Any adult spacer Active Tezspire 210 MG/1.91ML as directed Subcutaneous Active Albuterol Sulfate (2.5 MG/3ML) 0.083% 3 mL as needed Inhalation every 6 hrs Active predniSONE 20 MG 2 tablet Orally Once a day for 5 days Active Breztri Aerosphere 160-9-4.8 MCG/ACT 2 puffs Inhalation Twice a day for 90 days Active Nortriptyline HCl 10 MG 1 capsule Orally at bedtime Not-Taking busPIRone HCl 10 MG 1 tablet Orally Twice a day Active predniSONE 10 MG 1 tablet Orally Once a day used rarely Not-Taking Trihexyphenidyl HCl 2 MG 1 tablet Orally Twice a day Not-Taking Advair HFA 115-21 MCG/ACT 2 puffs Inhalation Twice a day Active Flonase Allergy Relief 50 MCG/ACT 1 spray in each nostril Nasally Once a day Active Tamsulosin HCl 0.4 MG 1 capsule Orally Once a day Active Multivitamin - 1 tablet Orally Once a day Active Levothyroxine Sodium 50 MCG 1 tablet in the morning on an empty stomach Orally Once a day Active Lisinopril 2.5 MG 1 tablet Orally Once a day Active Nortriptyline HCl 25 MG 1 capsule at bedtime Orally Once a day Active Carbidopa-Levodopa 25-250 MG 1 tablet Orally four times a day Active Prevagen 10 MG as directed Orally Not-Taking Social History Tobacco Use: Social History Observation Description Date Details (start date - stop date) Never Smoker NA - NA Tobacco Control (Standard) Question Answer Notes Tobacco use: Nonsmoker Vital Signs Blood pressure systolic 140 mm Hg 11/13/20 24 Blood pressure diastolic 80 mm Hg 024 Oximetry 98 % 11/13/2024 Height 70 in 11/13/2024 Weight 146 lbs 11/13/2024 BMI 20.95 kg/m2 11/13/2024 Encounters Encounter Location Date Provider Diagnosis [facility] [address] [facility] [address] [place] [id number] 11/13/2024 Eugenia Barragan Severe persistent asthma, uncomplicated J45.50 ; Wheezing R06.2 ; Hypertrophy of nasal turbinates J34.3 ; Chronic rhinitis J31.0 ; Parkinsonism, unspecified G20.C and Essential (primary) hypertension I10 Assessments Encounter Date Diagnosis (ICD Code) Assessment Notes Treatment Notes Treatment Clinical Notes Section Notes 11/13/2024 Severe persistent asthma, uncomplicated (ICD-10 - J45.50) [...] 1-2 minutes. Tezspire initiated in 08/21/24. Today, continues to report he is feeling well with no interval [...] 1 month for E&M, Tezspire, repeat spirometry as he will be on Tezspire for over 3 months. 11/13/2024 Wheezing (ICD-10 - R06.2) Lungs clear on exam today. 11/13/2024 Hypertrophy of nasal turbinates (ICD-10 - J34.3) Concern for allergies flaring asthma. He has never undergone skin testing. Of note, patient denies upper airway symptoms. - ImmunoCaps ordered showing undetectable to all aeroallergens. Total IgE 216. Consider recheck off steroids. 11/13/2024 Chronic rhinitis (ICD-10 - J31.0) As stated above 11/13/2024 Parkinsonism, unspecified (ICD-10 - G20.C) Given diagnosis of neurodegenerative disease, concerning that this may be playing a role is his severe lower airway obstruction. - He is slated to start thiamine therapy in 11/2024 for potential improvement in tremors and drooling. 11/13/2024 Essential (primary) hypertension (ICD-10 - I10) BP elevated today without symptoms of urgency or emergency. Continue serial checks and follow-up with PCP 11/13/2024 Other Plan Of Treatment Medication Medication Name Sig Start Date Stop Date Notes AeroChamber MV - as directed for 30 days Tezspire 210 MG/1.91ML as directed Subcutaneous Albuterol Sulfate (2.5 MG/3ML) 0.083% 3 mL as needed Inhalation every 6 hrs predniSONE 20 MG 2 tablet Orally Once a day for 5 days Breztri Aerosphere 160-9-4.8 MCG/ACT 2 puffs Inhalation Twice a day for 90 days Treatment Notes Assessment Notes Severe persistent [...] 1-2 minutes. Tezspire initiated in 08/21/24. Today, continues to report he is feeling well with no interval [...] 1 month for E&M, Tezspire, repeat spirometry as he will be on Tezspire for over 3 months. Wheezing Lungs clear on exam today. Hypertrophy of nasal turbinates Concern for allergies flaring asthma. He has never undergone skin testing. Of note, patient denies upper airway symptoms. - ImmunoCaps ordered showing undetectable to all aeroallergens. Total IgE 216. Consider recheck off steroids. Chronic rhinitis As stated above Parkinsonism, unspecified Given diagnosis of neurodegenerative disease, concerning that this may be playing a role is his severe lower airway obstruction. - He is slated to start thiamine therapy in 11/2024 for potential improvement in tremors and drooling. Essential (primary) hypertension BP elev ated today without symptoms of urgency or emergency. Continue serial checks and follow-up with PCP Next Appt Details Follow Up: 4 Weeks, Reason: Evaluation and Management,TEZSPIRE Administration Provider Name:Eugenia sanz, 01/08/2025 01:30:00 PM, [facility] [address], [place], [address], Procedure Notes * Category Sub-Category Detail Notes TEZSPIRE (tezepelumab-ekko) Administration Dosing Time / Vitals Hoda Laguna 11/13/2024 01:27:18 PM VETERINARY HOSPITAL ATTENDANT >, See initial vitals Dose Concentration/Dosing : 210 mg (110 mg/mL) / 1.91 mL subcutaneous injection Location [place], [place] Reaction None Frequency Interval:: Monthly Lot Number / Expiration Lot Number: [id number] , Expiration: 01/23/2026 Post-procedural check-out: Vital signs t aken 30 minutes after dosing: BP: 148/76, P: 98, O2: 96% Medication Source TEZSPIRE Source: Buy and Bill Medical necessity for in-off ice administration The patient or caregiver is not suitable , not competent or is physically unable to administer the TEZSPIRE product for the following reason(s):: Accordingly, the patient requires direct monitoring and administration by a healthcare professional Progress Notes * Shlomo COREASOB:[birth year] (74 yo M)Acc No.[id number]:11/13/2024 TEZSPIRE Adiministration Vis it Patient:Prem PAL Provider:?LOU LópezPDemian :1950???Age:74 Y???Sex:Male Juan e:11/13/2024 [address] [place] [id number] Pcp:nAa Arora Subjective: * Chief Complaints: * ???Asthma - previously not o n controller inhaler with JOSE and albuterol nebulizer use multiple times per day. Breztri started after initial visit with overall improvement. Reports no interval JOSE use in past month with no interval steroids. [...] reported overall improvement in lower airways symptoms with?JOSE use 1-2 times. Still with SOB with exertion and prolonged periods of talking. In effort to aid in symptom control and obstruction on spirometry, Tezspire was initated on 08/21/24. He reports no OCS use since prescribed by our office. Today, he continues to report he has been doing great with no interval JOSE use. ACT 25. He was evaluated by PCP this week, with plans to start thiamine therapy in an effort to improve Parkinson's symptoms.?? Prem was referred dueto concerns for allergies exacerbating his lower airway symptoms. Prem does not perceive any upper airwaysymptoms at this time. ImmunoCaps obtained after last visit were undetectable, though were obtanied with recent steroid use. Total IgE 216. He deniesfrequent infections. He [...] bedroom??Yes ?Age of carpet??27 ?Do you have [id number] carpeting??Yes ?What is the age of your carpeting??27 ?What is the age of your mattress (years)??14 ?What material(s) are used to manufacture your bedding and pillow??natural fiber (e.g. cotton) ?What material are your bedding items made of??synthetic ?Do you sleep with quilts or blankets or a duvet??Yes ?What material??synthetic ???Tobacco Control (Standard)?Tobacco use:?Nonsmoker * Medications:?TakingNortripty line HCl 25 MG Capsule 1 capsule at bedtime Orally Once a day Breztri Aerosphere 160-9-4.8 MCG/ACT Aerosol 2 puffs Inhalation Twice a day Albuterol Sulfate (2.5 MG/3ML) 0.083% Nebulization Solution 3 mL as needed Inhalation every 6 hrs Tezspire 210 MG/1.91ML Solution Prefilled Syringe as directed Subcutaneous Carbidopa-Levodopa 25-250 MG Tablet 1 tablet Orally four times a day Multivitamin - Tablet 1 tablet Orally Once a day Levothyroxine Sodium 50 MCG Tablet 1 tablet in the morning on an empty stomach Orally Once a day Lisinopril 2.5 MG Tablet 1 tablet Orally Once a day AeroChamber MV - Miscellaneous as directed Any adult spacerFlonase Allergy Relief 50 MCG/ACT Suspension 1 spray in each nostril Nasally Once a day Tamsulosin HCl 0.4 MG Capsule 1 capsule Orally Once a day busPIRone HCl 10 MG Tablet 1 tablet Orally Twice a day Advair HFA 115-21 MCG/ACT Aerosol 2 puffs Inhalation Twice a day Taking Nortriptyline HCl 25 MG Capsule 1 capsule at bedtime Orally Once a day Taking Breztri Aerosphere 160-9-4.8 MCG/ACT Aerosol 2 puffs Inhalation Twice a day Taking Albuterol Sulfate (2.5 MG/3ML) 0.083% Nebulization Solution 3 mL as needed Inhalation every 6 hrs Taking Tezspire 210 MG/1.91ML Solution Prefilled Syringe as directed Subcutaneous Taking Carbidopa-Levodopa 25-250 MG Tablet 1 tablet Orally four times a day Taking Multivitamin - Tablet 1 tablet Orally Once a day Taking Levothyroxine Sodium 50 MCG Tablet 1 tablet in the morning on an empty stomach Orally Once a day Taking Lisinopril 2.5 MG Tablet 1 tablet Orally Once a day Taking AeroChamber MV - Miscellaneous as directed Any adult spacerTaking Flonase Allergy Relief 50 MCG/ACT Suspension 1 spray in each nostril Nasally Once a day Taking Tamsulosin HCl 0.4 MG Capsule 1 capsule Orally Once a day Taking busPIRone HCl 10 MG Tablet 1 tablet Orally Twice a day Taking Advair HFA 115-21 MCG/ACT Aerosol 2 puffs Inhalation Twice a day Not-Taking/PRNpredniSONE 20 MG Tablet 2 tablet Orally Once a day Prevagen 10 MG Capsule as directed Orally Nortriptyline HCl 10 MG Capsule 1 capsule Orally at bedtime Trihexyphenidyl HCl 2 MG Tablet 1 tablet Orally Twice a day predniSONE 10 MG Tablet 1 tablet Orally Once a day , Notes to Pharmacist: used rarelyNot-Taking/PRN predniSONE 20 MG Tablet 2 tablet Orally Once a day Not-Taking/PRN Prevagen 10 MG Capsule as directed Orally Not-Taking/PRN Nortriptyline HCl 10 MG Capsule 1 capsule Orally at bedtime Not-Taking/PRN Trihexyphenidyl HCl 2 MG Tablet 1 tablet Orally Twice a day Not-Taking/PRN predniSONE 10 MG Tablet 1 tablet Orally Once a day , Notes to Pharmacist: used rarely * Allergies:?Iodinated Contras t Media: HivesAmoxicillinTiotropiumSulfameth/Trimethoprim: Swollen gland in neckIodinated Contrast Media: unknown reactionAmoxicillin: unknown reactionTiotropium: unknown reactionno[Allergies Verified] Objective: * Vitals:?BP:140/80mm Hg, HR:9 8/min, Pulse Oximetry:98%, ACT:25, Ht: 70 in, Wt: 146 lbs, BMI:20.95Index. * Examination: ???General examination: ?General appearance:?pleasant, well-developed, [...] undetectable to all aeroallergens. Total IgE 216. Consider recheck off steroids.?? 4.?Chronic rhinitis? Notes: As stated above?? 5.?Parkinsonism, unspecified ? Notes: Given diagnosis of neurodegenerative disease, concerning that this may be playing a role is his severe lower airway obstruction. - He is slated to start thiamine therapy in 11/2024 for potential improvement in tremors and drooling. ?? 6.?Essential (primary) hyper tension? Notes: BP elevated today without symptoms of urgency or emergency. Continue serial checks and follow-up with PCP?? * Procedures:?TEZSPIRE (tezepelumab-ekko) Administration:?Dosing Time / Vitals?Hoda Laguna 11/13/2024 01:27:18 PM [facility] ATTENDANT >, See initial vitals.?Dose ?Concentration/Dosing?210 mg (110 mg/mL) / 1.91 mL subcutaneous injection ?Location?[facility], [place].?Reaction?None.?Frequency ?Interval:?Monthly ?Lot Number / Expiration?Lot Number: [id number] , Expiration: 01/23/2026.?Post-procedural check-out:?Vital signs taken 30 minutes after dosing: BP: 148/76, P: 98, O2: 96%.?Medication Source ?TEZSPIRE Source?Buy and Bill ?Medical necessity for in-business office coordinator ?The patient or caregiver is not suitable, not competent or is physically unable to administer the TEZSPIRE product for the following reason(s):?Accordingly, the patient requires direct monitoring and administration by a healthcare professional? * Procedure Codes:?90834 PT-FO CUSED HLTH RISK [id number] DOC MEDS VERIFIED W/PT OR AE38879 THER/PROPH/DIAG INJ, SC/ELR3670 TEZSPIRE 210 mg - 1 unit (1 [...] brush teeth. Oral hygiene reviewed at length., [place] teeth or rinse out mouth after the [...] Administration) * Billing Information: * Visit Code:? 38213 Office Visit, Est Pt., Level 4. Modifiers: 25 * Procedure Codes:? 95525 PT-FOCUSED HLTH RISK ASSMT. G8427 DOC MEDS VERIFIED W/[place]. [address] THER/PROPH/DIAG INJ, SC/IM. J2356 TEZSPIRE 210 mg - 1 unit (1 mg). Units: 210.00. Modifiers: JJuanjo * [facility] ATTENDANT Electronically co-signed by Michael Paredes MD, FAAAAI on 12/01/2024 at 08:34 PM [facility] ATTENDANT Sign off status: Completed true * Provider:?OBIE López Juan e:?11/13/2024 Generated for Cristy peter/Samuel/Quinnitting on:?12/19/2024 03:43 AM [facility] ATTENDANT History and Physical Notes * HPI (History [...] lower airways symptoms with JOSE use 1-2 times. Still with SOB with exertion and prolonged periods of talking. In effort to aid in symptom control and obstruction on spirometry, Tezspire was initated on 08/21/24. He reports no OCS use since prescribed by our office. Today, he continues to report he has been doing great with no interval JOSE use. ACT 25. He was evaluated by PCP this week, with plans to start thiamine therapy in an effort to improve Parkinson's symptoms. Prem was referred due to concerns for allergies exacerbating his lower airway symptoms. Prem does not perceive any upper airway symptoms at this time. ImmunoCaps obtained after last visit were undetectable, though were obtanied with recent steroid use. Total IgE 216. He denies frequent infections. [...]
--- OUTSIDE RECORDS SUMMARY | 2024-12-19 03:44 | XMS_ITS | Encounter Summary ---
Author Organization [facility] Address 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
--- OUTSIDE RECORDS SUMMARY | 2024-12-19 03:44 | XMS_ITS | Encounter Summary ---
Author Organization [facility] Address 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
--- OUTSIDE RECORDS SUMMARY | 2024-12-19 03:44 | XMS_ITS ---
Author Organization [facility] Address [address] [place] [address] Care Team Providers Care Social Research Assistant Name Role Phone Ana Arora Primary Care Provider UnavailEugenia Laughlin Unavailable [phone] Bettina Ayala Unavailable Unavailable Allergies Allergen (clinical [...] with no interval JOSE use. ACT 25. Today, reporting URI with cough, resolved within past week. Medications Medication SIG (Take, Route, Frequency, Duration) Notes Start Date End Date Status Breztri Aerosphere 160-9-4.8 MCG/ACT 2 puffs Inhalation Twice a day for 90 days Active predniSONE 10 MG 1 tablet Orally Once a day used rarely Not-Taking Trihexyphenidyl HCl 2 MG 1 tablet Orally Twice a day Not-Taking Nortriptyline HCl 10 MG 1 capsule Orally at bedtime Not-Taking Prevagen 10 MG as directed Orally Not-Taking Flonase Allergy Relief 50 MCG/ACT 1 spray in each nostril Nasally Once a day Active Carbidopa-Levodopa 25-250 MG 1 tablet Orally four times a day Not-Taking Advair HFA 115-21 MCG/ACT 2 puffs Inhalation Twice a day Active busPIRone HCl 10 MG 1 tablet Orally Twice a day Active Tamsulosin HCl 0.4 MG 1 capsule Orally Once a day Active Lisinopril 2.5 MG 1 tablet Orally Once a day Active Levothyroxine Sodium 50 MCG 1 tablet in the morning on an empty stomach Orally Once a day Active Multivitamin - 1 tablet Orally Once a day Active Nortriptyline HCl 25 MG 1 capsule at bedtime Orally Once a day Active AeroChamber MV - as directed for 30 days Any adult spacer Active predniSONE 20 MG 2 tablet Orally Once a day for 5 days Active Tezspire 210 MG/1.91ML as directed Subcutaneous Active Albuterol Sulfate (2.5 MG/3ML) 0.083% 3 mL as needed Inhalation every 6 hrs Active Social History Tobacco Use: Social History Observation Description Date Details (start date - stop date) Never Smoker NA - NA Tobacco Control (Standard) Question Answer Notes Tobacco use: Nonsmoker Vital Signs Blood pressure systolic 136 mm Hg 12/11/19 25 Blood pressure diastolic 74 mm Hg 025 Oximetry 97 % 12/11/2024 Height 70 in 12/11/2024 Weight 144.2 lbs 12/11/2024 BMI 20.69 kg/m2 12/11/2024 Encounters Encounter Location Date Provider Diagnosis [facility] [address] [facility] [address] [place] [id number] 12/11/2024 Eugenia Barragan Severe persistent asthma, uncomplicated J45.50 ; Wheezing R06.2 ; Hypertrophy of nasal turbinates J34.3 ; Chronic rhinitis J31.0 ; Parkinsonism, unspecified G20.C and Essential (primary) hypertension I10 Assessments Encounter Date Diagnosis (ICD Code) Assessment Notes Treatment Notes Treatment Clinical Notes Section Notes 12/11/2024 Severe persistent asthma, uncomplicated (ICD-10 - J45.50) [...] minutes. Tezspire initiated in 08/21/24. Today, reports recent URI with cough x 2 weeks while traveling with family. Cough resolved 1 week ago. No lower airway symptoms. No interval JOSE use. ACT 25. - Records show PFTs from 12/2022, confirming [...] throughout exhalation. Advanced lung age. Will plan for repeat spirometry when on Tezspire for 3-6 months. Will hold off today as he reports viral URI 2 weeks ago. Cough resolved 1 week ago. - Will continue Breztri 2 inhalations BID. Instructed to brush teeth after inhalation. Continue JOSE PRN. - PFTs from 12/2022: decreased maximal expiratory [...] be on Tezspire for over 3 months. 12/11/2024 Wheezing (ICD-10 - R06.2) Lungs clear on exam today. 12/11/2024 Hypertrophy of nasal turbinates (ICD-10 - J34.3) Concern for allergies flaring asthma. He has never undergone skin testing. Of note, patient denies upper airway symptoms. - ImmunoCaps ordered showing undetectable to all aeroallergens. Total IgE 216. Consider recheck off steroids. 12/11/2024 Chronic rhinitis (ICD-10 - J31.0) As stated above 12/11/2024 Parkinsonism, unspecified (ICD-10 - G20.C) Given diagnosis of neurodegenerative disease, concerning that this may be playing a role is his severe lower airway obstruction. - He is slated to start thiamine therapy in 11/2024 for potential improvement in tremors and drooling. 12/11/2024 Essential (primary) hypertension (ICD-10 - I10) BP elevated today without symptoms of urgency or emergency. Continue serial checks and follow-up with PCP 12/11/2024 Other Plan Of Treatment Medication Medication Name Sig Start Date Stop Date Notes Breztri Aerosphere 160-9-4.8 MCG/ACT 2 puffs Inhalation Twice a day for 90 days AeroChamber MV - as directed for 30 days predniSONE 20 MG 2 tablet Orally Once a day for 5 days Tezspire 210 MG/1.91ML as directed Subcutaneous Albuterol Sulfate (2.5 MG/3ML) 0.083% 3 mL as needed Inhalation every 6 hrs Treatment Notes Assessment Notes Severe persistent asthma, [...] minutes. Tezspire initiated in 08/21/24. Today, reports recent URI with cough x 2 weeks while traveling with family. Cough resolved 1 week ago. No lower airway symptoms. No interval JOSE use. ACT 25. - Records show PFTs from 12/2022, confirming [...] throughout exhalation. Advanced lung age. Will plan for repeat spirometry when on Tezspire for 3-6 months. Will hold off today as he reports viral URI 2 weeks ago. Cough resolved 1 week ago. - Will continue Breztri 2 inhalations BID. Instructed to brush teeth after inhalation. Continue JOSE PRN. - PFTs from 12/2022: decreased maximal expiratory [...] Up: 4 Weeks, Reason: Evaluation and Management,TEZSPIRE Administration,Spirometry/Flow Volume Loop Provider Name:Eugenia sanz, 01/08/2025 01:30:00 PM, [address] [facility], [address], [address], Procedure Notes * Category Sub-Category Detail Notes TEZSPIRE (tezepelumab-ekko) Administration Dosing Time / Vitals Hoda Laguna 12/11/2024 02:29:38 PM RECRUITING ADMINISTRATOR >, See initial vitals Dose Concentration/Dosing : 210 mg (110 mg/mL) / 1.91 mL subcutaneous injection Location [facility] Reaction None Frequency Interval:: Monthly Lot Number / Expiration Lot Number: [id number] , Expiration: 05/25/2026 Post-procedural check-out: Vital signs t aken 30 minutes after dosin/78, HR 86, 97%, Medication Source TEZSPIRE Source: Buy and Bill Source Verification:: Yes Tiffanie Johns Medical necessity for in-off ice administration The patient or caregiver is not suitable , not competent or is physically unable to administer the TEZSPIRE product for the following reason(s):: lack of suitable supervision and oversight given the risk of hypersensitivty reaction, as listed in the prescribing information Progress Notes * Sunita COREAShDOB:[birth year] (74 yo M)Acc No.[id number]:12/11/2024 TEZSPIRE Adiministration Vis it Patient:?Prem COREAS Provider:?OBIE López :1950???Age:74 Y???Sex:Male Juan e:12/11/2024 Address:[address] [place] [address] [id number] Pcp:Ana rAora Subjective: * Chief Complaints: * ???Asthma - previously not o n controller inhaler with JOSE and albuterol nebulizer use multiple times per day. Breztri started after initial visit with overall improvement. Reports no interval JOSE use in past month with no interval steroids. Tezspire initiated 08/21/24 with no interval JOSE use. ACT 25. Today, reporting URI with cough, resolved within past week. * HPI: ???*Introduction:?I had the pleasure of [...] initiated as well as 5 days OCS. Perm reported overall improvement in lower airways symptoms with?JOSE use 1-2 times. Still with SOB with exertion and prolonged periods of talking. In effort to aid in symptom control and obstruction on spirometry, Chloé was initated on 08/21/24. He reports no OCS use since prescribed by our office. Today, he reports recent travel to [place] since last visit and everyone he was with developed URI. He repoted a nasty cough for approximately 2 weeks, mainly with exertion. Denied shortness of breath, chest tightness and did not use JOSE. Cough resolved 1 week ago and he feels back to himself.??ACT 25. Previously reported plans to start thiamine therapy in an effort to improve Parkinson's symptoms. TOday, reporting stoping supplements and vitamins in preparation for upcoming prostate biopsy next week.? Prem was referred dueto concerns for allergies [...] bedroom??Yes ?Age of carpet??28 ?Do you have vion-dt-dprm carpeting??Yes ?What is the age of your [...] MG/1.91ML Solution Prefilled Syringe as directed Subcutaneous AeroChamber MV - Miscellaneous as directed Any adult spacerNortriptyline HCl 25 MG Capsule 1 capsule at bedtime Orally Once a day Multivitamin - Tablet 1 tablet Orally Once a day Levothyroxine Sodium 50 MCG Tablet 1 tablet in the morning on an empty stomach Orally Once a day Lisinopril 2.5 MG Tablet 1 tablet Orally Once a day Flonase Allergy Relief 50 MCG/ACT Suspension 1 spray in each nostril Nasally Once a day Tamsulosin HCl 0.4 MG Capsule 1 capsule Orally Once a day busPIRone HCl 10 MG Tablet 1 tablet Orally Twice a day Advair HFA 115-21 MCG/ACT Aerosol 2 puffs Inhalation Twice a day Taking Breztri Aerosphere 160-9-4.8 MCG/ACT Aerosol 2 puffs Inhalation Twice a day Taking Albuterol Sulfate (2.5 MG/3ML) 0.083% Nebulization Solution 3 mL as needed Inhalation every 6 hrs Taking Tezspire 210 MG/1.91ML Solution Prefilled Syringe as directed Subcutaneous Taking AeroChamber MV - Miscellaneous as directed Any adult spacerTaking Nortriptyline HCl 25 MG Capsule 1 capsule at bedtime Orally Once a day Taking Multivitamin - Tablet 1 tablet Orally Once a day Taking Levothyroxine Sodium 50 MCG Tablet 1 tablet in the morning on an empty stomach Orally Once a day Taking Lisinopril 2.5 MG Tablet 1 tablet Orally Once a day Taking Flonase Allergy Relief 50 MCG/ACT Suspension 1 spray in each nostril Nasally Once a day Taking Tamsulosin HCl 0.4 MG Capsule 1 capsule Orally Once a day Taking busPIRone HCl 10 MG Tablet 1 tablet Orally Twice a day Taking Advair HFA 115-21 MCG/ACT Aerosol 2 puffs Inhalation Twice a day Not-Taking/PRNpredniSONE 20 MG Tablet 2 tablet Orally Once a day Carbidopa-Levodopa 25-250 MG Tablet 1 tablet Orally four times a day Prevagen 10 MG Capsule as directed Orally Nortriptyline HCl 10 MG Capsule 1 capsule Orally at bedtime Trihexyphenidyl HCl 2 MG Tablet 1 tablet Orally Twice a day predniSONE 10 MG Tablet 1 tablet Orally Once a day , Notes to Pharmacist: used rarelyMedication List reviewed and reconciled with the patientNot- Taking/PRN predniSONE 20 MG Tablet 2 tablet Orally Once a day Not-Taking/PRN Carbidopa- Levodopa 25-250 MG Tablet 1 tablet Orally four times a day Not-Taking/PRN Prevagen 10 MG Capsule [...] unknown reactionTiotropium: unknown reactionno[Allergies Verified] Objective: * Vitals:?BP:136/74mm Hg, HR:7 3/min, Pulse Oximetry:97%, ACT:25, Ht: 70 in, Wt: 144.2 lbs, BMI:20.69Index. * Examination: ???General examination: ?General appearance:?pleasant, well-developed, [...] Procedures:?TEZSPIRE (tezepelumab-ekko) Administration:?Dosing Time / Vitals?Hoda Laguna 12/11/2024 02:29:38 PM RECRUITING ADMINISTRATOR >, See initial vitals.?Dose ?Concentration/Dosing?210 mg (110 mg/mL) / 1.91 mL subcutaneous injection ?Location?[facility].?Reaction?None.?Frequency ?Interval:?Monthly ?Lot Number / Expiration?Lot Number: [id number] , Expiration: 05/25/2026.?Post-procedural check-out:?Vital signs taken 30 minutes after dosin/78, HR 86, 97%,?.?Medication Source ?TEZSPIRE Source?Buy and Bill ?Source Verification:?Yes Tiffanie Cardona. ?Medical necessity for in-classification officer ?The patient or caregiver is not suitable, not competent or is physically unable to administer the TEZSPIRE product for the following reason(s):?lack of suitable supervision and oversight given the risk of hypersensitivty reaction, as listed in the prescribing information? * Procedure Codes:?28287 PT-FO CUSED [facility] RISK [id number] DOC MEDS VERIFIED W/PT OR [id number] THER/PROPH/DIAG INJ, SC/[id number] TEZSPIRE 210 mg - 1 unit (1 [...] brush teeth. Oral hygiene reviewed at length., [place] teeth or rinse out mouth after the [...] for future use.?Patient education material?sent to portal??Yes ?BP Management:?FIRST HYPERTENSIVE BP READING FOLLOW-UP PLAN:?Follow-up 1 month ?REFERRAL TO ALTERNATIVE / PRIMARY CARE PROVIDER:?Referral to general physician * Follow Up:?4 Weeks (Reason: Evaluation and Management,TEZSPIRE Administration,Spirometry/Flow Volume Loop) * Billing Information: * Visit Code:? 85774 Office Visit, Est Pt., Level 4. Modifiers: 25 * Procedure Codes:? 07805 PT-FOCUSED HLTH RISK ASSMT. G8427 DOC MEDS VERIFIED W/[place]. [address] THER/PROPH/DIAG INJ, SC/IM. J2356 TEZSPIRE 210 mg - 1 unit (1 mg). Units: 210.00. Modifiers: JZ * UITING ADMINISTRATOR Sign off status: Completed true * Provider:?OBIE López Juan e:?12/11/2024 Generated for Printi ng/Faxing/eTransmitting on:?12/19/2024 03:43 AM RECRUITING ADMINISTRATOR History and Physical Notes * HPI (History [...] JOSE PRN per record review from Dr. Foner's office. Records reviewed confirm bronchdilator reversibility on [...] since prescribed by our office. Today, he reports recent travel to [place] since last visit and everyone he was with developed URI. He repoted a nasty cough for approximately 2 weeks, mainly with exertion. Denied shortness of breath, chest tightness and did not use JOSE. Cough resolved 1 week ago and he feels back to himself. ACT 25. Previously reported plans to start thiamine therapy in an effort to improve Parkinson's symptoms. TOday, reporting stoping supplements and vitamins in preparation for upcoming prostate biopsy next week. Prem was referred due to concerns for [...]
--- OUTSIDE RECORDS SUMMARY | 2024-12-19 03:44 | XMS_ITS | Encounter Summary ---
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
--- OUTSIDE RECORDS SUMMARY | 2024-12-19 03:44 | XMS_ITS | Clinical Summary ---
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
--- OUTSIDE RECORDS SUMMARY | 2024-12-19 03:44 | XMS_ITS | Encounter Summary ---
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
== END 2024-12-18 09:36 | disposition home or self-care (01) ==
PROVIDERS: PCP Family Medicine; Visit Provider Urology
PROC: (CPT 55700; principal; 2024-12-18 07:30)
DX: C61 Malignant neoplasm of prostate (principal)
CPT/HCPCS: 76872; 55700; G0416; J0690; J0696; J2704; J7120